=== PATIENT | female | born 1990 | race Caucasian/White ===

== ENCOUNTER 2016-03-31 19:34 | Emergency (ER) | payer OTHER ==
[2016-03-31] MEDS ORDERED: ONDANSETRON HCL INJ/PF 4 MG/2 ML SDV IV ONE (21:05)
[2016-03-31] MEDS ORDERED: NORMAL SALINE 1000 ML 1,000 ML IV PRN (21:05)
--- NOTE | 2016-03-31 21:09 | ER Document Report ---
ED Flu Like - General Chief Complaint: Flu Symptoms Stated Complaint: FLU LIKE SYMPTOMS Time seen by provider: 21:06 Mode of Arrival: Ambulatory Information source: Patient TRAVEL OUTSIDE OF THE [place] IN LAST 30 DAYS: No - HPI Patient complains to provider of: fever, body aches, vomiting and diarrhea, headache Onset: This morning Timing/Duration: Worse Quality of pain: Achy Severity: Moderate Pain Level: 3 Associated symptoms: Body/muscle aches, Chills, Nonproductive cough, Fever, Headache, Nausea, Vomiting, Shortness of breath, Sore throat, Weakness Similar symptoms previously: No Recently seen / treated by doctor: Yes Notes: Patient is a 26-year-old female who is approximately 27 weeks , who presents to the emergency room complaining of flulike symptoms that started this morning with vomiting, diarrhea, body aches, chills, headache, sore throat , nonproductive cough, positive sick contacts with son recently, 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, positive sick contacts - Related Data Allergies/Adverse Reactions: No Known Allergies Allergy (Verified 08/03/14 13:08) Past Medical History - General Information source: Patient - Social History Smoking Status: Never Smoker Chew tobacco use (# tins/day): No Frequency of alcohol use: None Drug Abuse: None Family History: Reviewed & Not Pertinent Patient has suicidal ideation: No Patient has homicidal ideation: No Renal/ Medical History: Denies: Hx Peritoneal Dialysis Past Surgical History: Reports: Hx Section - Immunizations Immunizations up to date: Yes Hx Diphtheria, Pertussis, Tetanus Vaccination: No Review of Systems - Review of Systems Constitutional: See HPI EENT: No symptoms reported Cardiovascular: No symptoms reported Respiratory: See HPI Gastrointestinal: See HPI Genitourinary: No symptoms reported Female Genitourinary: No symptoms reported Musculoskeletal: See HPI Skin: No symptoms reported Hematologic/Lymphatic: No symptoms reported Neurological/Psychological: See HPI -: Yes All other systems reviewed and negative Physical Exam - Vital signs Vitals: Temp Pulse Resp BP Pulse Ox 98.8 F 117 H 18 109/71 97 03/31/16 20:05 03/31/16 20:05 03/31/16 20:05 03/31/16 20:05 03/31/16 20:05 Interpretation: Tachycardic - General General appearance: Appears well, Alert - HEENT Head: Normocephalic, Atraumatic Eyes: Normal Conjunctiva: Normal Extraocular movements intact: Yes Eyelashes: Normal Pupils: PERRL Ears: Normal External canal: Normal Tympanic membrane: Normal Sinus: Normal Nasal: Normal Mouth/Lips: Normal Pharynx: Erythema. No: Exudate, Tonsillar hypertrophy Neck: Normal - Respiratory Respiratory status: No respiratory distress Chest status: Nontender Breath sounds: Normal Chest palpation: Normal - Cardiovascular Rhythm: Regular Heart sounds: Normal auscultation Murmur: No - Abdominal Inspection: Gravid female Distension: No distension Bowel sounds: Normal Tenderness: Nontender Organomegaly: No organomegaly - Back Back: Normal, Nontender - Extremities General upper extremity: Normal inspection, Nontender, Normal color, Normal ROM , Normal temperature General lower extremity: Normal inspection, Nontender, Normal color, Normal ROM , Normal temperature, Normal weight bearing. No: Marilin's sign - Neurological Neuro grossly intact: Yes Cognition: Normal Orientation: AAOx4 [place] Coma Scale Eye Opening: Spontaneous Jesús Coma Scale Verbal: Oriented Jesús Coma Scale Motor: Obeys Commands [place] Coma Scale Total: 15 Speech: Normal Motor strength normal: LUE, RUE, LLE, RLE Sensory: Normal - Psychological Associated symptoms: Normal affect, Normal mood - Skin Skin Temperature: Warm Skin Moisture: Dry Skin Color: Normal Course - Re-evaluation Re-evalutation: 03/31/16 23:01 Patient resting comfortably, reports nausea is improved, still having body aches , lab findings were discussed with her and fianc at bedside which are relatively normal, she was advised to rest, drink plenty of fluids, take Tylenol as needed for fever or body aches, follow up with her EQUIPMENT MAINT TECH or return if symptoms worsen, patient acknowledges understanding and agreement with this plan - Vital Signs Vital signs: Temp Pulse Resp BP Pulse Ox 98.9 F 117 H 18 109/71 97 03/31/16 22:54 03/31/16 20:05 03/31/16 20:05 03/31/16 20:05 03/31/16 20:05 - Laboratory Result Diagrams: 03/31/16 22:20 03/31/16 22:20 Laboratory results interpreted by me: 03/31/16 03/31/16 03/31/16 22:20 22:20 22:20 RBC 3.48 L Hgb 10.8 L Hct 32.0 L RDW 16.8 H Seg Neutrophils % 84.5 H Lymphocytes % 6.1 L Absolute Lymphocytes 0.3 L Sodium 135.0 L BUN 5 L Total Protein 6.1 L Albumin 3.4 L Urine Ketones 20 H Urine Ascorbic Acid 20 H Discharge - Discharge Clinical Impression: Viral illness Condition: Stable Disposition: HOME, SELF-CARE Instructions: Viral Syndrome ([facility]), Acetaminophen Additional Instructions: Drink plenty of fluids. Tylenol or Motrin as needed for fever. Follow-up with your EQUIPMENT MAINT TECH in one to 2 days. Return to the emergency room immediately if symptoms worsen or any additional concerns. Forms: Return to Work
[2016-03-31 22:34] LABS: ABSOLUTE LYMPHOCYTES (AUTO) 0.3 10^3/uL (0.5-4.7); ABSOLUTE MONOCYTES (AUTO) 0.4 10^3/uL (0.1-1.4); BASOPHILS % (AUTO) 0.4 % (0-2); EOSINOPHILS % (AUTO) 0.1 % (0-6); HEMOGLOBIN 10.8 g/dL (12.0-15.5); HGB HCT DIFFERENCE 0.4; LYMPHOCYTES % (AUTO) 6.1 % (13-45); MEAN CORPUSCULAR HEMOGLOBIN 30.9 pg (27.0-33.4); MEAN CORPUSCULAR HGB CONC 33.6 g/dL (32.0-36.0); MEAN CORPUSCULAR VOLUME 92 fl (80-97); MONOCYTES % (AUTO) 8.9 % (3-13); RED BLOOD COUNT 3.48 10^6/uL (3.72-5.28); RED CELL DISTRIBUTION WIDTH 16.8 % (11.5-14.0); SEGMENTED NEUTROPHILS % (AUTO) 84.5 % (42-78); WHITE BLOOD COUNT 4.8 10^3/uL (4.0-10.5)
[2016-03-31 22:51] LABS: ALANINE AMINOTRANSFERASE 24 U/L (9-52); ALBUMIN 3.4 g/dL (3.5-5.0); ALKALINE PHOSPHATASE 72 U/L (38-126); ANION GAP 7 (5-19); ASPARTATE AMINO TRANSFERASE 21 U/L (14-36); BILIRUBIN,TOTAL 0.3 mg/dL (0.2-1.3); BLOOD UREA NITROGEN 5 mg/dL (7-20); CALCIUM 8.5 mg/dL (8.4-10.2); CARBON DIOXIDE 25 mmol/L (22-30); CHLORIDE 103 mmol/L (98-107); CREATININE RESULT 0.55 mg/dL (0.52-1.25); GLUCOSE 91 mg/dL (75-110); POTASSIUM 3.8 mmol/L (3.6-5.0); TOTAL PROTEIN 6.1 g/dL (6.3-8.2)
[2016-03-31 22:52] LABS: APPEARANCE,URINE SLIGHTLY-CLOUDY; BILIRUBIN,URINE NEGATIVE (NEGATIVE); GLUCOSE, URINE NEGATIVE (NEGATIVE); KETONES,URINE 20 mg/dL (NEGATIVE); LEUKOCYTE ESTERASE,URINE NEGATIVE (NEGATIVE); NITRITE,URINE NEGATIVE (NEGATIVE); PROTEIN,URINE NEGATIVE (NEGATIVE); URINE SPECIFIC GRAVITY 1.023; UROBILINOGEN,URINE NEGATIVE mg/dL (<2.0)
[2016-03-31 23:11] VITALS: BP 109/64
== END 2016-03-31 23:11 | disposition home or self-care (01) ==
LOC: ER 19:34
DX: O98.519 Other viral diseases complicating pregnancy, unspecified trimester (principal); B34.9 Viral infection, unspecified; O21.9 Vomiting of pregnancy, unspecified; O26.899 Other specified pregnancy related conditions, unspecified trimester; R50.9 Fever, unspecified; R51 Headache; R05 Cough; R06.02 Shortness of breath; R53.1 Weakness; O99.89 Other specified diseases and conditions complicating pregnancy, childbirth and the puerperium; M79.1 Myalgia; O99.519 Diseases of the respiratory system complicating pregnancy, unspecified trimester; J02.9 Acute pharyngitis, unspecified; Z3A.00 Weeks of gestation of pregnancy not specified
CPT/HCPCS: 99283; 96361; 96374; 36415; 87070; 87880; 85025; 80053; 81001; 87804; J2405; J7030

== ENCOUNTER 2016-04-18 10:06 | Observation (INO) | payer OTHER ==
[2016-04-18] MEDS ORDERED: NIFEDIPINE 10 MG CAPSULE ONE ×2 (11:25→16:35)
[2016-04-18 11:27] LABS: APPEARANCE,URINE CLEAR; BILIRUBIN,URINE NEGATIVE (NEGATIVE); GLUCOSE, URINE NEGATIVE (NEGATIVE); KETONES,URINE NEGATIVE (NEGATIVE); LEUKOCYTE ESTERASE,URINE NEGATIVE (NEGATIVE); NITRITE,URINE NEGATIVE (NEGATIVE); PROTEIN,URINE NEGATIVE (NEGATIVE); URINE SPECIFIC GRAVITY 1.017; UROBILINOGEN,URINE NEGATIVE mg/dL (<2.0)
[2016-04-18 11:41] LABS: URINE BARBITURATES SCREEN NEGATIVE; URINE METHADONE SCREEN NEGATIVE; URINE OPIATES LOW NEGATIVE; URINE PHENCYCLIDINE SCREEN NEGATIVE
[2016-04-18] MEDS ORDERED: NIFEDIPINE 10 MG CAPSULE PO ONE ×2 (11:48→16:34)
--- NOTE | 2016-04-18 12:01 | L&D Flow Sheet ---
LD Flowsheet Datetime Report Generated by CPN: 04/18/2016 12:00 Datetime: 04/18/2016 11:38 Communication Comments: PT EATING PER DR HOFFEMAN ORDER (Tanvi Halsmer, RN) Datetime: 04/18/2016 11:30 Medications Medication Comments: PROCARDIA 10MG PO PER DR HOFFEMAN (Tanvi Halsmer, RN) Datetime: 04/18/2016 11:27 NBP Sys/Tuyet/Mean (mmHg): 98 (QS system process) : 55 (QS system process) : 73 (QS system process) Pulse: 73 (QS system process) Respirations: 16 (Tanvi Halsmer, RN) LaborFlag: Antepartum (QS system process) Datetime: 04/18/2016 11:25 Patient Care Patient Position/Activity: Left Lateral (Tanvi Halsmer, RN) I/O Interventions: Popsicle (Tanvi Halsmer, RN) Datetime: 04/18/2016 11:06 Communication Comments: FFN COLLECTED PER RN (Tanvi Halsmer, RN) Datetime: 04/18/2016 10:57 NBP Sys/Tuyet/Mean (mmHg): 119 (QS system process) : 73 (QS system process) : 91 (QS system process) Pulse: 66 (QS system process) Respirations: 16 (Tanvi Halsmer, RN) LaborFlag: Antepartum (QS system process) Datetime: 04/18/2016 10:55 Communication Communication: Provider at Bedside (Tanvi Matson RN) Communication Comments: DR FOSS AT BEDSIDE DISCUSSING POC AT THIS TIME. (Tanvi Matson RN) Datetime: 04/18/2016 10:27 NBP Sys/Tuyet/Mean (mmHg): 117 (QS system process) : 73 (QS system process) : 87 (QS system process) Pulse: 63 (QS system process) Respirations: 16 (Tanvi Matson RN) Temperature (F): 97.8 (Tanvi Matson RN) Temperature (C): 36.6 (QS system process) Temperature Route: Oral (Tanvi Matson, RN) Pain Pain Scale: 1 (Tanvi Crandaller, RN) Pain Presence: Intermittent (Tanvi Crandaller, RN) Pain Type: Cramping; Pressure (Tanvi Crandaller, RN) Pain Location: Abdomen; Perineum (Tanvi Crandaller, RN) Pain Goal: 0 (Tanvi Zaratesmer, RN) Pain Relief Measures: Comfort Measures (Tanvi Crandaller, RN) LaborFlag: Antepartum (QS system process) Datetime: 04/18/2016 10:15 Vital Signs Stage of : Antepartum (Tanvi Matson RN)
[2016-04-18] MEDS ORDERED: BETAMET ACET/BETAMET NA INJ 6 MG/1 ML ONE (12:44)
[2016-04-18 13:18] LABS: AMNISURE (ROM) NEGATIVE (NEGATIVE)
[2016-04-18] MEDS ORDERED: IBUPROFEN 800 MG TABLET ONE (13:43)
[2016-04-18] MEDS ORDERED: IBUPROFEN 800 MG TABLET PO SCH (13:49)
--- NOTE | 2016-04-18 14:01 | L&D Flow Sheet ---
LD Flowsheet Datetime Report Generated by CPN: 04/18/2016 14:00 Datetime: 04/18/2016 13:49 Medication Comments: MOTRIN 800 MG PO (Tanvi Halsmer, RN) Datetime: 04/18/2016 13:19 Communication Comments: negative amnisure results. Dr. Webster discussing poc with pt and family. pt is being kept for 48 hour observation, motrin 800mg po q8, no IV needed, pt may eat and drink. (Tanvi Halsmer, RN) Datetime: 04/18/2016 12:53 Steroids: Celestone 12mg IM - Dose 1 (Tanvi Halsmer, RN) Datetime: 04/18/2016 12:49 Communication Comments: AMNISURE COLLECTED PER DR HOFFEMAN (Tanvi Halsmer, RN) Datetime: 04/18/2016 12:22 NBP Sys/Tuyet/Mean (mmHg): 114 (QS system process) : 67 (QS system process) : 85 (QS system process) Pulse: 87 (QS system process) LaborFlag: Antepartum (QS system process)
[2016-04-18 15:34] LABS: ABSOLUTE LYMPHOCYTES (AUTO) 0.9 10^3/uL (0.5-4.7); ABSOLUTE MONOCYTES (AUTO) 0.2 10^3/uL (0.1-1.4); BASOPHILS % (AUTO) 0.3 % (0-2); EOSINOPHILS % (AUTO) 0.1 % (0-6); HEMATOCRIT 35.4 % (36.0-47.0); HEMOGLOBIN 11.8 g/dL (12.0-15.5); LYMPHOCYTES % (AUTO) 8.5 % (13-45); MEAN CORPUSCULAR HEMOGLOBIN 30.6 pg (27.0-33.4); MEAN CORPUSCULAR HGB CONC 33.2 g/dL (32.0-36.0); MEAN CORPUSCULAR VOLUME 92 fl (80-97); MONOCYTES % (AUTO) 2.4 % (3-13); RED BLOOD COUNT 3.85 10^6/uL (3.72-5.28); RED CELL DISTRIBUTION WIDTH 16.5 % (11.5-14.0); SEGMENTED NEUTROPHILS % (AUTO) 88.7 % (42-78); WHITE BLOOD COUNT 10.2 10^3/uL (4.0-10.5)
--- NOTE | 2016-04-18 16:01 | L&D Flow Sheet ---
LD Flowsheet Datetime Report Generated by CPN: 04/18/2016 16:00 Datetime: 04/18/2016 15:28 Pain Scale: 1 (Melida Camp, RNC) Pain Coping: Talking Through Contractions (Melida Camp, RNC) Pain Assessment Comments: watching dvd no complaints (Melida Camp, RNC) LaborFlag: Antepartum (QS system process) Datetime: 04/18/2016 15:00 Monitor Mode: External; Palpation (Melida Camp, RNC) Monitor Interventions for UA: [place] Adjusted (Melida Camp, RNC) Frequency (min): 1-3 (Melida Camp, RNC) Quality: Mild (Melida Camp, RNC) Duration (sec): 30-50 (Melida Camp, RNC) Duration Criteria: Less than Two 120 Second Contractions (Melida Camp, RNC) Pattern: Normal: <= 5 Contractions in 10 Minutes (Melida Camp, RNC) Resting Tone (Palpate): Relaxed (Melida Camp, RNC) Contraction Comments: irregular/ irritable pattern (Melida Camp, RNC) Datetime: 04/18/2016 14:57 NBP Sys/Tuyet/Mean (mmHg): 95 (QS system process) : 53 (QS system process) : 69 (QS system process) Pulse: 65 (QS system process) Temperature (F): 97.6 (Melida Camp, RNC) Temperature (C): 36.4 (QS system process) Temperature Route: Oral (Melida Camp, RNC) LaborFlag: Antepartum (QS system process) Datetime: 04/18/2016 14:30 Monitor Mode: External; Palpation (Melida Camp, RNC) Frequency (min): 1-3 (Melida Camp, RNC) Quality: Mild (Melida Camp, RNC) Duration (sec): 40-50 (Melida Camp, RNC) Resting Tone (Palpate): Relaxed (Melida Camp, RNC) Level of Consciousness: Fully Conscious (Melida Camp, RNC) DTR's/Clonus: DTRs 1+ (Melida Camp, RNC) Headache: Denies (Melida Camp, RNC) Breath Sounds, Left: Clear and Equal (Melida Camp, RNC) Breath Sounds, Right: Clear and Equal (Melida Camp, RNC) Nausea/Vomiting: Denies (Melida Camp, RNC) RUQ Epigastric Pain: Denies (Melida Camp, RNC) Datetime: 04/18/2016 14:06 Communication Comments: REPORT GIVEN TO S. EVANSTON, RNC AND CARE RELINQUISHED AT THIS TIME. (Tanvi Matson RN) Datetime: 04/18/2016 14:00 Monitor Mode: External (Tanvi Crandaller, RN) Frequency (min): IRRITABLITY NOTED (Tanvi Matson RN) Quality: Mild (Tanvi Matson RN) Resting Tone (Palpate): Relaxed (Tanvi Matson RN) Monitor Mode: External US (Tanvi Matson RN) FHR Baseline Rate : 140 (Tanvi Matson RN) FHR Baseline Changes: No Baseline Change (Tanvi Matson RN) Variability: Moderate 6-25 bpm (Tanvi Matson RN) Accelerations: 15X15 (Tanvi Matson RN) Decelerations: None (Tanvi Matson RN)
[2016-04-18] MEDS ORDERED: DEXTROSE 5%-LACTATED RINGERS 1,000 ML IV PRN (17:11)
--- NOTE | 2016-04-18 18:01 | L&D Flow Sheet ---
LD Flowsheet Datetime Report Generated by CPN: 04/18/2016 18:00 Datetime: 04/18/2016 17:39 IV/Blood Work: IV Bolus Given ml @ 1000ml of d5lr; New IV Bag Hung (Melida Camp, RNC) Patient Care Comments: sitting to eat (Melida Camp, RNC) Patient Care Comments: D5LR up @ 100 ml/hr (Melida Camp, RNC) Datetime: 04/18/2016 17:30 Pain Scale: 0 (Melida Camp, RNC) Pain Coping: Talking Through Contractions (Melida Camp, RNC) Pain Assessment Comments: states reduction in cramping with Procardia and iv fluids (Melida Camp, RNC) LaborFlag: Antepartum (QS system process) Datetime: 04/18/2016 17:05 NBP Sys/Tuyet/Mean (mmHg): 116 (QS system process) : 66 (QS system process) : 83 (QS system process) Pulse: 94 (QS system process) Respirations: 16 (Melida Camp, RNC) LaborFlag: Antepartum (QS system process) Datetime: 04/18/2016 17:00 Monitor Mode: External; Palpation (Melida Camp, RNC) Frequency (min): 1-2 (Melida Camp, RNC) Quality: Mild (Melida Camp, RNC) Duration (sec): 40-60 (Melida Camp, RNC) Duration Criteria: Less than Two 120 Second Contractions (Melida Camp, RNC) Resting Tone (Palpate): Relaxed (Melida Camp, RNC) IV/Blood Work: IV Started; IV Bolus Started; IV Infusing per Order (Melida Camp, RNC) Datetime: 04/18/2016 16:43 Magnesium/Antihypertensives: Procardia PO (mg) @ 10mg po given (Melida Camp, RNC) Datetime: 04/18/2016 16:40 Communication: Provider Orders Received; [facility] Communication Comments: Dr Webster given phone report of contractions every 1-2 minutes , palpate mild with relaxation noted. Report that patient states she is aware of contractions with c/o intermittent menstrual like cramping. Plan discussed for IV placement with bolus D5LR and po Procaria 10 mg (Melida Camp, RNC) Datetime: 04/18/2016 16:37 NBP Sys/Tuyet/Mean (mmHg): 96 (QS system process) : 52 (QS system process) : 70 (QS system process) Pulse: 67 (QS system process) Respirations: 17 (Melida Camp, RNC) LaborFlag: Antepartum (QS system process) Datetime: 04/18/2016 16:00 Monitor Mode: External; Palpation (Melida Camp, RNC) Frequency (min): irregular (Melida Camp, RNC) Quality: Mild (Melida Camp, RNC) Duration (sec): 30-50 (Melida Camp, RNC) Duration Criteria: Less than Two 120 Second Contractions (Melida Camp, RNC) Pattern: Normal: <= 5 Contractions in 10 Minutes (Melida Camp, RNC) Resting Tone (Palpate): Relaxed (Melida Camp, RNC) Contraction Comments: irritability noted (Melida Camp, RNC)
--- NOTE | 2016-04-18 20:01 | L&D Flow Sheet ---
LD Flowsheet Datetime Report Generated by CPN: 04/18/2016 20:00 Datetime: 04/18/2016 19:49 NBP Sys/Tuyet/Mean (mmHg): 112 (QS system process) : 63 (QS system process) : 81 (QS system process) Pulse: 76 (QS system process) LaborFlag: Antepartum (QS system process) Datetime: 04/18/2016 19:30 Level of Consciousness: Fully Conscious (Veronique Ring, RN) DTR's/Clonus: DTRs 2+; No Clonus (Veronique Ring, RN) Headache: Denies (Veronique Ring, RN) Breath Sounds, Left: Clear and Equal (Veronique Ring, RN) Breath Sounds, Right: Clear and Equal (Veronique Ring, RN) Nausea/Vomiting: Denies (Veronique Ring, RN) RUQ Epigastric Pain: Denies (Veronique Ring, RN) Datetime: 04/18/2016 19:00 Monitor Mode: External; Palpation (Melida Camp, RNC) Frequency (min): irritability (Melida Camp, RNC) Quality: Mild (Melida Camp, RNC) Duration (sec): 30-45 (Melida Camp, RNC) Pattern: Normal: <= 5 Contractions in 10 Minutes (Melida Camp, RNC) Resting Tone (Palpate): Relaxed (Melida Camp, RNC) Pain Scale: 1 (Melida Camp, RNC) Pain Presence: None/Denies (Melida Camp, RNC) Pain Type: N/A (Melida Camp, RNC) Pain Coping: Talking Through Contractions (Melida Camp, RNC) Pain Assessment Comments: denies increase in intensity (Melida Camp, RNC) Communication: RN at Bedside (Melida Camp, RNC) LaborFlag: Antepartum (QS system process) Datetime: 04/18/2016 18:48 Patient Care Comments: sitting up and holding son, RN to bedside toco adjusted (Melida Camp, RNC) Datetime: 04/18/2016 18:30 Monitor Mode: External; Palpation (Melida Camp, RNC) Monitor Interventions for UA: [place] Adjusted (Melida Camp, RNC) Frequency (min): irregular (Melida Camp, RNC) Quality: Mild (Melida Camp, RNC) Duration (sec): 40-60 (Melida Camp, RNC) Duration Criteria: Less than Two 120 Second Contractions (Melida Camp, RNC) Pattern: Normal: <= 5 Contractions in 10 Minutes (Melida Camp, RNC) Resting Tone (Palpate): Relaxed (Melida Camp, RNC) Contraction Comments: states decrease in cramping (Melida Camp, RNC) Datetime: 04/18/2016 18:00 Communication: RN at Bedside (Melida Camp, RNC)
[2016-04-19] MEDS ORDERED: BETAMET ACET/BETAMET NA INJ 6 MG/1 ML IM PRN (09:29)
--- NOTE | 2016-04-19 09:29 | PDOC PROGRESS REPORT ---
Subjective Progress Note for:: 04/19/16 Subjective:: doing well. occasional contraction only. no regular pattern. no bleeding, no LOF No further SOB. Physical Exam - Physical Exam Vital Signs: Temp Pulse Resp BP Pulse Ox 97.8 F 64 16 112/57 L 99 04/19/16 08:00 04/19/16 08:00 04/19/16 08:00 04/19/16 08:00 04/19/16 08:00 Intake & Output 04/18/16 04/19/16 04/20/16 06:59 06:59 06:59 Intake Total 300 Output Total 900 Balance -600 Weight 60.3 kg General appearance: PRESENT: no acute distress, cooperative GI/Abdominal exam: PRESENT: soft - non tender, gravid Result Laboratory Results: 04/18/16 15:15 04/18/16 04/18/16 10:32 15:15 WBC 10.2 RBC 3.85 Hgb 11.8 L Hct 35.4 L MCV 92 MCH 30.6 MCHC 33.2 RDW 16.5 H Plt Count 272 Seg Neutrophils % 88.7 H Lymphocytes % 8.5 L Monocytes % 2.4 L Eosinophils % 0.1 Basophils % 0.3 Absolute Neutrophils 9.0 H Absolute Lymphocytes 0.9 Absolute Monocytes 0.2 Absolute Eosinophils 0.0 Absolute Basophils 0.0 Urine Color YELLOW Urine Appearance CLEAR Urine pH 7.0 Ur Specific [place] 1.017 Urine Protein NEGATIVE Urine Glucose (UA) NEGATIVE Urine Ketones NEGATIVE Urine Blood NEGATIVE Urine Nitrite NEGATIVE Ur Leukocyte Esterase NEGATIVE Urine WBC (Auto) 1 Impressions: Obstetrics Ultrasound 04/18/16 00:00 IMPRESSION: LIMITED OBSTETRICAL ULTRASOUND WITH MEASURED PARAMETERS DELINEATED ABOVE. Trimester of : Third trimester - 28 weeks to delivery. Assessment & Plan - Time Time Spent with patient: Less than 15 minutes Critical Time spent with patient: Less than 15 minutes Medications reviewed and adjusted accordingly: Yes - 2nd Celestone injection today at 1244 Anticipated discharge: Home Within: within 24 hours - Inpatient Certification Based on my medical assessment, after consideration of the patient's comorbidities, presenting symptoms, or acuity I expect that the services needed warrant INPATIENT care.: Yes I certify that my determination is in accordance with my understanding of Medicare's requirements for reasonable and necessary INPATIENT services [42 CFR 412.3e].: Yes Medical Necessity: Need Close Monitoring Due to Risk of Patient Decompensation - plan for d/c in AM if remains stable with few/none contractions
[2016-04-19] MEDS: IBUPROFEN 800 MG TABLET PO SCH ×2 (10:40→19:54)
[2016-04-20] MEDS: IBUPROFEN 800 MG TABLET PO SCH (02:22)
--- NOTE | 2016-04-20 08:18 | PDOC DISCHARGE SUMMARY ---
General - Admit/Disc Date/PCP Admission Date/Primary Care Provider: 04/18/16 14:03 BARBIE DELANEY MD Discharge Date: 04/20/16 - Additional Information Home Medications: Vit#96/Ferrous Fum/FA [ Tablet] 1 tab PO DAILY 08/03/14 Ibuprofen [Motrin 800 mg Tablet] 800 mg PO Q6 #60 tablet 08/04/14 History of Present Illness History of Present Illness: RODRIGO FUENTES is a 26 year old female Hospital Course Hospital Course: has responded well to tocolysis with Motrin. No bleeding. SOB has resolved. Physical Exam - Physical Exam Vital Signs: Temp Pulse Resp BP Pulse Ox 98.1 F 69 16 108/59 L 100 04/20/16 04:00 04/20/16 04:00 04/20/16 04:00 04/20/16 04:00 04/20/16 04:00 Intake & Output 04/19/16 04/20/16 04/21/16 06:59 06:59 06:59 Intake Total 300 340 Output Total 900 Balance -600 340 Weight 60.3 kg General appearance: PRESENT: no acute distress GI/Abdominal exam: PRESENT: soft, other - gravid, nontender - Obstetrical Exam Tender: No Result Laboratory Results: 04/18/16 15:15 Impressions: Obstetrics Ultrasound 04/18/16 00:00 IMPRESSION: LIMITED OBSTETRICAL ULTRASOUND WITH MEASURED PARAMETERS DELINEATED ABOVE. Trimester of : Third trimester - 28 weeks to delivery. Plan Time Spent: Less than 30 Minutes - discharge home with another 24 hours of Motrin and then start Procardia 10 mg q 4-12 hours prn contraction pattern
[2016-04-20 09:08] VITALS: BP 99/59
--- NOTE | 2016-04-20 10:45 | L&D Discharge Summary ---
OB Discharge Summary Datetime Report Generated by CPN: 04/20/2016 10:45 DISCHARGE DIAGNOSIS Gestation: 30.1 Number of Babies in Womb: 4 Parity: 1
--- NOTE | 2016-04-20 10:45 | L&D General Admission ---
General Admit Datetime Report Generated by CPN: 04/20/2016 10:45 INFORMATION Patient Age: 26 (04/18/2016 10:06:QS system process) EDC: 06/27/2016 00:00 (04/18/2016 10:45:Tanvi Matson RN) EDC per Ultrasound: 06/27/2016 00:00 (04/18/2016 10:45:Tanvi Matson RN) LMP: 09/21/2015 00:00 (04/18/2016 10:45:Tanvi Matson RN) : 4 (04/18/2016 10:45:Tanvi Matson RN) Para: 1 (04/18/2016 10:45:Tanvi Matson RN) Term: 1 (04/18/2016 10:45:Tanvi Matson RN) : 0 (04/18/2016 10:45:Tanvi Matson RN) Spontaneous Abortions: 2 (04/18/2016 10:45:Tanvi Matson RN) Induced Abortions: 0 (04/18/2016 10:45:Tanvi Matson RN) Livin (04/18/2016 10:45:Tanvi Matson RN) Cesareans: 1 (04/18/2016 10:45:Tanvi Matson RN) VBACs: 0 (04/18/2016 10:45:Tanvi Matson RN) Ectopic: 0 (04/18/2016 10:45:Tanvi Matson RN) Multiple Births: 0 (04/18/2016 10:45:Tanvi Matson RN) Baby, Number in Womb: 4 (04/18/2016 10:45:Tanvi Matson RN) CARE Primary Fire Support Specialist: [facility] (04/18/2016 10:45:Tanvi Matson RN) Month of 1st Visit: 12/03/2015 (04/18/2016 10:45:Tanvi Matson RN) Adequate Care: Yes (04/18/2016 10:45:Tanvi Matson RN) Prepregnancy Weight (lb): 124 (04/18/2016 10:45:Tavni Matson RN) Prepregnancy Weight (kg): 56.4 (04/18/2016 10:45:QS system process) Height (in): 61 (04/18/2016 21:38:QS system process) Height (in): 61 (04/18/2016 16:02:QS system process) Height (in): 61 (04/18/2016 14:58:QS system process) Height (in): 61 (04/18/2016 14:30:QS system process) Height (in): 61 (04/18/2016 14:29:QS system process) Height (in): 61 (04/18/2016 14:28:QS system process) Height (in): 61 (04/18/2016 10:52:QS system process) ALLERGIES Medication Allergy: No (04/18/2016 10:45:Tanvi Matson RN) Medication Allergies: No Known Allergies (04/18/2016) (04/18/2016 10:47:QS system process) Medication Allergies: No Known Allergies (08/03/2014) (04/18/2016 10:06:QS system process) Latex Allergy: No Latex Allergies (04/18/2016 10:45:Tanvi Matson RN) Food Allergies: NONE (04/18/2016 10:45:Tanvi Matson RN) Environmental Allergies: NONE (04/18/2016 10:45:Tanvi Matson RN) COMMUNICATION Primary Language: Tamazight (04/18/2016 10:45:Tanvi Matson RN) Medical Tx Preferred Language: Tamazight (04/18/2016 10:45:Tanvi Halsmer, RN) Communication Barrier(s): None (04/18/2016 10:45:Tanvi Matson RN) DEMOGRAPHICS Address: [address] [place] [id number] (04/18/2016 10:06:QS system process) Zipcode: [id number] (04/18/2016 10:06:QS system process) Home (04/18/2016 10:06:QS system process) Work (04/18/2016 10:06:QS system process) SSN: [id number] (04/18/2016 10:06:QS system process) Next of Kin Name: OSEI MAHAN (04/18/2016 10:06:QS system process) Next of Kin (04/18/2016 10:06:QS system process) Next of Kin Relationship: OR (04/18/2016 10:06:QS system process) Date of : 1990 (04/18/2016 10:06:QS system process) Marital Status: Legally (04/18/2016 10:06:QS system process) Sex: Female (04/18/2016 10:06:QS system process) Race: (04/18/2016 10:06:QS system process) Ethnicity: Non- or (04/18/2016 10:06:QS system process) Synagogue: None (04/18/2016 10:06:QS system process) DRUG AND ALCOHOL USE Alcohol: No (04/18/2016 10:45:Tanvi Matson RN) Cigarettes: Never Smoker. [id number] (04/18/2016 10:45:Tanvi Matson RN) Marijuana: No (04/18/2016 10:45:Tanvi Matson RN) Cocaine: No (04/18/2016 10:45:Tanvi Matson RN) Other Illicit Drugs: No (04/18/2016 10:45:Tanvi Matson RN) VACCINE HISTORY Influenza Vaccine: Yes (04/18/2016 10:45:Katrina Dickinson RN) Influenza Date: 10/2015 (04/18/2016 10:45:Katrina Dickinson RN) Pneumococcal Vaccine: No (04/18/2016 10:45:Katrina Dickinson RN) Tetanus Vaccine: Yes (04/18/2016 10:45:Katrina Dickinson RN) Tetanus Date: 03/2014 (04/18/2016 10:45:VIKI Gillette) Tdap Vaccine: Yes (04/18/2016 10:45:Katrina Dickinson RN) Tdap Date: 03/2014 (04/18/2016 10:45:Katrina Dickinson RN) Hepatitis B Vaccine: Yes (04/18/2016 10:45:Katrina Dickinson RN) Lunch Cook: [facility] (04/18/2016 10:45:Katrina Dickinson RN) Feeding Preference: Breast (04/18/2016 10:45:Katrina Dickinson RN) Benefit of Breast Feed Discussed: Yes (04/18/2016 10:45:Katrina Dickinson RN) Circumcision: N/A (04/18/2016 10:45:Katrina Dickinson RN) Classes Attended: No (04/18/2016 10:45:Katrina Dickinson RN) Tubal Ligation: No (04/18/2016 10:45:Katrina Dickinson RN) Tubal Authorization Signed: N/A (04/18/2016 10:45:Katrina Dickinson RN) Consent: N/A (04/18/2016 10:45:Katrina Dickinson RN) Consent Signed: N/A (04/18/2016 10:45:Katrina Dickinson RN) Pain Management Plans: Spinal (04/18/2016 10:45:Katrina Dickinson RN) Other Pain Management Plans: REPEAT C/S (04/18/2016 10:45:Katrina Dickinson RN) Plans for Labor and Delivery: Cord Blood Banking; Other, Specify (04/18/2016 10:45:Veronique Streeter RN) Other Labor and Delivery Plans: - Skin to skin if possible in OR; delayed bath (04/18/2016 10:45:Veronique Streeter RN) Support Person: OSEI QURESHI (04/18/2016 10:45:Tanvi Matson RN) Support Person Relationship: Significant Other (04/18/2016 10:45:Tanvi Matson RN) Cultural/Spritual Practice: No (04/18/2016 10:45:Tanvi Matson RN) Spir/Cult Dietary Needs: No (04/18/2016 10:45:Tanvi Matson RN) LIVING SITUATION/DISCHARGE PLAN Living Arrangements: House (04/18/2016 10:45:Tanvi Matson RN) Adequate Access to:: Electric; Heat; Refrigeration; Plumbing/Running water; Phone; Transportation (04/18/2016 10:45:Tanvi Matson RN) WIC Program: No (04/18/2016 10:45:Tanvi Matson RN) Discharge Instrument Installer Person: OSEI MAHAN (04/18/2016 10:45:VIKI Gillette) Person to Help after Discharge: OSEI MAHAN (04/18/2016 10:45:VIKI Gillette) Currently Using Commun Resources: No (04/18/2016 10:45:Tanvi Matson RN) Outside Agency/Psych Social Worker: No (04/18/2016 10:45:Tanvi Matson RN) Car Seat for Discharge: Yes (04/18/2016 10:45:Tanvi Matson RN) Adoption Requested: No (04/18/2016 10:45:Tanvi Matson RN) Pt Contact w/infant Post : N/A (04/18/2016 10:45:Tanvi Matson RN) LABS Hemoglobin: 11.8 L (04/18/2016 15:15:QS system process) Hematocrit: 35.4 L (04/18/2016 15:15:QS system process) MCV: 92 (04/18/2016 15:15:QS system process) OB/PREVIOUS HISTORY LMP: 09/21/2015 00:00 (04/18/2016 10:45:Tanvi Matson RN) Previous Procedures: Ultrasound; NST (04/18/2016 10:45:Veronique Streeter RN) Current Procedures: Ultrasound; NST (04/18/2016 10:45:VIKI Gillette) History of Previous : Yes (04/18/2016 10:45:Katrina Dickinson RN) History of Gestational Diabetes: No (04/18/2016 10:45:Katrina Dickinson RN) History of PIH: No (04/18/2016 10:45:Katrina Dickinson RN) History of Incompetent Cervix: No (04/18/2016 10:45:Katrina Dickinson RN) History of Placenta Previa/Abrup: No (04/18/2016 10:45:Katrina Dicknison RN) History of Macrosomia: No (04/18/2016 10:45:Katrina Dickinson RN) History of IUGR: Yes (04/18/2016 10:45:Katrina Dickinson RN) History of Hemorrhage: No (04/18/2016 10:45:Katrina Dickinson RN) History of Loss/Stillborn: No (04/18/2016 10:45:Katrina Dickinson RN) History of : No (04/18/2016 10:45:Katrina Dickinson RN) History of D (Rh) Sensitization: No (04/18/2016 10:45:Katrina Dickinson RN) History Recurrent Loss/Stillborn: No (04/18/2016 10:45:Katrina Dickinson RN) History Depression/PP Depression: Yes (04/18/2016 10:45:Katrina Dickinson RN) History of Uterine Anomaly/ELSY: No (04/18/2016 10:45:Katrina Dickinson RN) History of Infertility: No (04/18/2016 10:45:Katrina Dickinson RN) History of ART Treatment: No (04/18/2016 10:45:Katrina Dickinson RN) History of ELSY: No (04/18/2016 10:45:Katrina Dickinson RN) Comments Obstetrical History: IUGR 1ST PREG WITH C/S-CPD G2- Polyhydramnious, contractions (04/18/2016 10:45:VIKI Gillette) MEDICAL HISTORY Med Hx Diabetes: No (04/18/2016 10:45:Katrina Dickinson RN) Med Hx Hypertension: No (04/18/2016 10:45:Katrina Dickinson RN) Med Hx Heart Disease: No (04/18/2016 10:45:Katrina Dickinson RN) Med Hx Autoimmune Disorder: No (04/18/2016 10:45:Katrina Dickinson RN) Med Hx Kidney Disease/UTI: Yes (04/18/2016 10:45:Katrina Dickinson RN) Med Hx Neurologic/Epilepsy: No (04/18/2016 10:45:Katrina Dickinson RN) Med Hx Psychiatric Disorders: No (04/18/2016 10:45:Katrina Dickinson RN) Med Hx Hepatitis/Liver Disease: No (04/18/2016 10:45:Katrina Dickinson RN) Med Hx Varicosities/Phlebitis: No (04/18/2016 10:45:Katrina Dickinson RN) Med Hx Thyroid Dysfunction: No (04/18/2016 10:45:Katrina Dickinson RN) Med Hx Trauma/Violence: No (04/18/2016 10:45:Katrina Dickinson RN) Med Hx Blood Transfusion: No (04/18/2016 10:45:Katrina Dickinson RN) Med Hx Pulmonary (Asthma,TB): No (04/18/2016 10:45:Katrina Dickinson RN) Med Hx Breast: No (04/18/2016 10:45:Katrina Dickinson RN) 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 (04/18/2016 10:45:Katrina Dickinson RN) Med Hx Hospitalization/Surgery: Yes (04/18/2016 10:45:Katrina Dickinson RN) Med Hx Anesthetic Complications: No (04/18/2016 10:45:Katrina Dickinson RN) Med Hx Abnormal Pap Smear: No (04/18/2016 10:45:Katrina Dickinson RN) Other Medical Diseases: Yes (04/18/2016 10:45:Katrina Dickinson RN) Med Hx Significant Family Hx: No (04/18/2016 10:45:Katrina Dickinson RN) Details of Med/Surg Hx: FRQ UTI'S DEPRESSION, ANXIETY CHILDBIRTH WITH C/S INTERSTICIAL CYSTITIS (04/18/2016 10:45:Katrina Dickinson RN) INFECTIOUS HISTORY Inf Hx Gonorrhea: No (04/18/2016 10:45:Katrina Dickinson RN) Inf Hx Chlamydia: No (04/18/2016 10:45:Katrina Dickinson RN) Inf Hx Syphilis: No (04/18/2016 10:45:Katrina Dickinson RN) Inf Hx HIV/AIDS: No (04/18/2016 10:45:Katrina Dickinson RN) Inf Hx Human Papilloma Virus: No (04/18/2016 10:45:Katrina Dickinson RN) Inf Hx Pt/Partner Genital Herpes: No (04/18/2016 10:45:Katrina Dickinson RN) Inf Hx Tuberculosis/Exposure: No (04/18/2016 10:45:Katrina Dickinson RN) Inf Hx Hepatitis B,C: No (04/18/2016 10:45:Katrina Dickinson RN) Inf Hx Rash or Viral Illness: No (04/18/2016 10:45:Katrina Dickinson RN) GENETIC HISTORY Gen Hx Age >=35 at LELA: No (04/18/2016 10:45:Katrina Dickinson RN) Gen Hx Thalassemia: No (04/18/2016 10:45:Katrina Dickinson RN) Gen Hx Congenital Heart Defect: No (04/18/2016 10:45:Katrina Dickinson RN) Gen Hx Neural Tube Defect: No (04/18/2016 10:45:Katrina Dickinson RN) Gen Hx Down's Syndrome: No (04/18/2016 10:45:Katrina Dickinson RN) Gen Hx Isidoro-Sachs: No (04/18/2016 10:45:Katrina Dickinson RN) Gen Hx Sebas: No (04/18/2016 10:45:Katrina Dickinson RN) Gen Hx Familial Dysautonomia: No (04/18/2016 10:45:Katrina Dickinson RN) Gen Hx Sickle Cell Disease/Trait: No (04/18/2016 10:45:Katrina Dickinson RN) Gen Hx Hemophilia/Blood Disorder: No (04/18/2016 10:45:Katrina Dickinson RN) Gen Hx Muscular Dystrophy: No (04/18/2016 10:45:Katrina Dickinson RN) Gen Hx Cystic Fibrosis: No (04/18/2016 10:45:Katrina Dickinson RN) Gen Hx [place] Chorea: No (04/18/2016 10:45:Katrina Dickinson RN) Gen Hx Mental Retardation/Autism: No (04/18/2016 10:45:Katrina Dickinson RN) Gen Hx Tested for Fragile X: No (04/18/2016 10:45:Katrina Dickinson RN) Gen Hx Other Inher/Chromosomal: No (04/18/2016 10:45:Katrina Dickinson RN) Gen Hx Maternal Metabolic DO: No (04/18/2016 10:45:Katrina Dickinson RN) Gen Hx Pt Father or FOB Defect: No (04/18/2016 10:45:Katrina Dickinson RN) Gen Hx Other Genetic History: No (04/18/2016 10:45:Katrina Dickinson RN) Gen Hx Drugs/Meds since LMP: Yes (04/18/2016 10:45:Veronique Streeter RN) Gen Hx Medications: PNV, iron, vitamin c, diclegis, zofran (04/18/2016 10:45:Veronique Streeter RN)
--- NOTE | 2016-04-20 10:45 | L&D Current Admission ---
Current Admit Datetime Report Generated by CPN: 04/20/2016 10:45 ADMISSION INFORMATION Current Admit Date/Time: 04/18/2016 13:00 (04/18/2016 10:52:Katrina Dickinson RN) Reason for Admission: Labor; Observation (04/18/2016 10:52:Katrina Dickinson RN) Chief Complaint: Contractions (04/18/2016 10:52:Tanvi Matson RN) Medications During : Vitamin (04/18/2016 10:52:Katrina Dickinson RN) Meds During -Oth: FESO4 (04/18/2016 10:52:Katrina Dickinson RN) EGA per Dates: 30.0 (04/18/2016 10:52:QS system process) EGA per US: 30.0 (04/18/2016 10:52:QS system process) Method of Arrival: Wheelchair (04/18/2016 10:52:Katrina Dickinson RN) Admitted From: Home (04/18/2016 10:52:Katrina Dickinson RN) Reason for Induction: Not Applicable (04/18/2016 10:52:Katrina Dickinson RN) Records Available: Yes (04/18/2016 10:52:Katrina Dickinson RN) General Admission Information: Reviewed (04/18/2016 10:52:Katrina Dickinson RN) BELONGINGS/ADVANCED DIRECTIVES Valuables/Personal Effects: Purse/Wallet; Cell Phone (04/18/2016 10:52:Katrina Dickinson RN) Other Belongings: SEE VALUABLES CONSENT (04/18/2016 10:52:Katrina Dickinson RN) Disposition of Belongings: Kept with Patient (04/18/2016 10:52:Katrina Dickinson RN) Advance Direct for Healthcare: No, and Wants No Information (04/18/2016 10:52:Katrina Dickinson RN) Durable Power of Mediation Commissioner: No (04/18/2016 10:52:Katrina Dickinson RN) Living Will: No (04/18/2016 10:52:Katrina Dickinson RN) Organ Donor: Yes (04/18/2016 10:52:Katrina Dickinson RN) Pt Rights Information Given: Yes (04/18/2016 10:52:Katrina Dickinson RN) Pt Understands Pt Rights: Yes (04/18/2016 10:52:Katrina Dickinson RN) LEARNING ASSESSMENT Knowledge Level: Understands L_D Process; Understands Care Activities; Understands Diagnosis (04/18/2016 10:52:Katrina Dickinson RN) Barriers to Learning: None (04/18/2016 10:52:Katrina Dickinson RN) Learning Readiness: Motivated (04/18/2016 10:52:Katrina Dickinson RN) Learns Best By: 1 to 1 Instruction; Reading; Videos; Demonstration (04/18/2016 10:52:Katrina Dickinson RN) Learning Needs: Symptoms to Report; Treatment Plan; Medication; Diagnosis; Nutrition; Equipment (04/18/2016 10:52:Katrina Dickinson RN) DOMESTIC VIOLANCE SCREENING Dom Viol Threatened/Hurt: No (04/18/2016 10:52:Katrina Dickinson RN) Hx of Abuse/Neglect past 2yrs: No (04/18/2016 10:52:Katrina Dickinson RN) Feel Unsafe Going Home: No (04/18/2016 10:52:Katrina Dickinson RN) Addt'l Observ Indicating Abuse: No (04/18/2016 10:52:Katrina Dickinson RN) Reason Unable to Complete Screen: N/A, Screen Completed (04/18/2016 10:52:Katrina Dickinson RN) Considered Personal Harm/Suicide: No (04/18/2016 10:52:Katrina Dickinson RN) NUTRITIONAL/FUNCTIONAL SCREENING Problem with Appetite >5 Days: No (04/18/2016 10:52:Katrina Dickinson RN) Chew/Swallow Difficulties: No (04/18/2016 10:52:Katrina Dickinson RN) Inappropriate Wt Gain/Loss: No (04/18/2016 10:52:Katrina Dickinson RN) Presence Skin Breakdown/Ulcer: No (04/18/2016 10:52:Katrina Dickinson RN) Special Diet: No (04/18/2016 10:52:Katrina Dickinson RN) Pt Requests Medicine Assistant Visit: No (04/18/2016 10:52:Katrina Dickinson RN) Hx of Any of the Following?: N/A (04/18/2016 10:52:Katrina Dickinson RN) New Diagnosis of: N/A (04/18/2016 10:52:Katrina Dickinson RN) Requires Assist w/Ambulation: No (04/18/2016 10:52:Katrina Dickinson RN) Uses Assist Device to Ambulate: No (04/18/2016 10:52:Katrina Dickinson RN) Pt Requires Help w/ADL's: No (04/18/2016 10:52:Katrina Dickinson RN)
--- NOTE | 2016-04-20 10:45 | L&D Admission Assessment ---
LD ADM ASMT Datetime Report Generated by CPN: 04/20/2016 10:45 Assessment Type: Ongoing Assessment (04/18/2016 19:30:Veronique Streeter RN) Assessment Type: Ongoing Assessment (04/18/2016 14:30:VIKI Gillette) Assessment Type: Triage (04/18/2016 10:52:Tanvi Maston RN) Weight (lb): 132 (04/18/2016 21:38:QS system process) Weight (lb): 132 (04/18/2016 16:02:QS system process) Weight (lb): 132 (04/18/2016 14:58:QS system process) Weight (lb): 293 (04/18/2016 14:30:QS system process) Weight (lb): 293 (04/18/2016 14:29:QS system process) Weight (lb): 293 (04/18/2016 14:28:QS system process) Weight (lb): 293 (04/18/2016 10:52:QS system process) Weight (kg): 60.0 (04/18/2016 21:38:QS system process) Weight (kg): 60.0 (04/18/2016 16:02:QS system process) Weight (kg): 60.0 (04/18/2016 14:58:QS system process) Weight (kg): 133.2 (04/18/2016 14:30:QS system process) Weight (kg): 133.2 (04/18/2016 14:29:QS system process) Weight (kg): 133.2 (04/18/2016 14:28:QS system process) Weight (kg): 133.2 (04/18/2016 10:52:QS system process) Total Wt Gain (lb): 8 (04/18/2016 21:38:QS system process) Total Wt Gain (lb): 8 (04/18/2016 16:02:QS system process) Total Wt Gain (lb): 8 (04/18/2016 14:58:QS system process) Total Wt Gain (lb): 169 (04/18/2016 14:30:QS system process) Total Wt Gain (lb): 169 (04/18/2016 14:29:QS system process) Total Wt Gain (lb): 169 (04/18/2016 14:28:QS system process) Total Wt Gain (lb): 169 (04/18/2016 10:52:QS system process) Wt Gain (kg): 3.6 (04/18/2016 21:38:QS system process) Wt Gain (kg): 3.6 (04/18/2016 16:02:QS system process) Wt Gain (kg): 3.6 (04/18/2016 14:58:QS system process) Wt Gain (kg): 76.6 (04/18/2016 14:30:QS system process) Wt Gain (kg): 76.6 (04/18/2016 14:29:QS system process) Wt Gain (kg): 76.6 (04/18/2016 14:28:QS system process) Wt Gain (kg): 76.6 (04/18/2016 10:52:QS system process) BMI: 24.9 (04/18/2016 21:38:QS system process) BMI: 24.9 (04/18/2016 16:02:QS system process) BMI: 24.9 (04/18/2016 14:58:QS system process) BMI: 55.4 (04/18/2016 14:30:QS system process) BMI: 55.4 (04/18/2016 14:29:QS system process) BMI: 55.4 (04/18/2016 14:28:QS system process) Pain Scale: 1 (04/18/2016 19:49:Veronique Streeter RN) Pain Scale: 1 (04/18/2016 19:00:VIKI Gil[place]) Pain Scale: 0 (04/18/2016 17:30:VIKI [place]) Pain Scale: 1 (04/18/2016 15:28:VIKI [place]) Pain Scale: 1 (04/18/2016 10:52:Tanvi Matson RN) Pain Presence: Constant (04/18/2016 20:00:Veronique Streeter RN) Pain Presence: Constant (04/18/2016 19:49:Veronique Streeter RN) Pain Presence: None/Denies (04/18/2016 19:00:VIKI [place]) Pain Presence: Intermittent (04/18/2016 10:52:Tanvi Matson RN) Pain Type: Ache (04/18/2016 20:00:Veronique Streeter RN) Pain Type: Ache (04/18/2016 19:49:Veronique Streeter RN) Pain Type: N/A (04/18/2016 19:00:VIKI [place]) Pain Type: Cramping (04/18/2016 10:52:Tanvi Matson RN) Pain Location: Back (04/18/2016 20:00:Veronique Streeter RN) Pain Location: Abdomen; Back (04/18/2016 19:49:Veronique Streeter RN) Pain Location: Abdomen (04/18/2016 10:52:Tanvi Matson RN) Pain Goal: 1 (04/18/2016 19:49:Veronique Streeter RN) Pain Goal: 0 (04/18/2016 10:52:Tanvi Matson RN) Pain Related to Contraction: Yes (04/18/2016 10:52:Tanvi Matson RN) Pain Comments: Pt denies any contractions, but states having pain of 1 out of 5 constantly in her back (04/18/2016 20:00:Veronique Streeter RN) Pain Comments: Pt states unable to feel any contractions or pressure. (04/18/2016 19:30:Veronique Streeter RN) Pain Comments: denies increase in intensity (04/18/2016 19:00:VIKI [place]) Pain Comments: states reduction in cramping with Procardia and iv fluids (04/18/2016 17:30:VIKI [place]) Pain Comments: watching dvd no complaints (04/18/2016 15:28:VIKI [place]) Frequency (min): 0 (04/18/2016 20:14:Veronique Ring, RN) Frequency (min): x1 (04/18/2016 20:00:Veronique Ring, RN) Frequency (min): x2 (04/18/2016 19:30:Veronique Ring, RN) Frequency (min): irritability (04/18/2016 19:00:Melida Camp, RNC) Frequency (min): irregular (04/18/2016 18:30:[place], RNC) Frequency (min): 1-2 (04/18/2016 17:00:[place], RNC) Frequency (min): irregular (04/18/2016 16:00:[place], RNC) Frequency (min): 3-4 (04/18/2016 15:30:[place], RNC) Frequency (min): 1-3 (04/18/2016 15:00:[place], RNC) Frequency (min): 1-3 (04/18/2016 14:30:[place], RNC) Frequency (min): IRRITABLITY NOTED (04/18/2016 14:00:Tanvi Halsmer, RN) Frequency (min): 2-4 (04/18/2016 13:30:Tanvi Halsmer, RN) Frequency (min): 2-4 (04/18/2016 11:30:Tanvi Halsmer, RN) Frequency (min): 2-4 (04/18/2016 11:00:Tanvi Halsmer, RN) Frequency (min): 4 mins (04/18/2016 10:52:Tanvi Halsmer, RN) Duration (sec): 60 (04/18/2016 20:00:Veronique Ring, RN) Duration (sec): 50-70 (04/18/2016 19:30:Veronique Ring, RN) Duration (sec): 30-45 (04/18/2016 19:00:[place], RNC) Duration (sec): 40-60 (04/18/2016 18:30:[place], RNC) Duration (sec): 40-60 (04/18/2016 17:00:[place], RNC) Duration (sec): 30-50 (04/18/2016 16:00:[place], RNC) Duration (sec): 40-50 (04/18/2016 15:30:[place], RNC) Duration (sec): 30-50 (04/18/2016 15:00:[place], RNC) Duration (sec): 40-50 (04/18/2016 14:30:[place], RNC) Duration (sec): 40-60 (04/18/2016 13:30:Tanvi Matson, RN) Duration (sec): 50-80 (04/18/2016 11:30:Tanvi Matson, RN) Duration (sec): 50-80 (04/18/2016 11:00:Tanvi Matson, RN) Quality: Mild (04/18/2016 20:00:Veronique Streeter RN) Quality: Mild (04/18/2016 19:30:Veronique Streeter, RN) Quality: Mild (04/18/2016 19:00:[place], RNC) Quality: Mild (04/18/2016 18:30:[place], RNC) Quality: Mild (04/18/2016 17:00:[place], RNC) Quality: Mild (04/18/2016 16:00:[place], RNC) Quality: Mild (04/18/2016 15:30:[place], RNC) Quality: Mild (04/18/2016 15:00:[place], RNC) Quality: Mild (04/18/2016 14:30:[place], RNC) Quality: Mild (04/18/2016 14:00:Tanvi Matson RN) Quality: Mild (04/18/2016 13:30:Tanvi Matson RN) Quality: Mild (04/18/2016 11:30:Tanvi Matson RN) Quality: Mild (04/18/2016 11:00:Tanvi Matson RN) Pattern: Normal: <= 5 Contractions in 10 Minutes (04/18/2016 19:00:[place], RNC) Pattern: Normal: <= 5 Contractions in 10 Minutes (04/18/2016 18:30:[place], RNC) Pattern: Normal: <= 5 Contractions in 10 Minutes (04/18/2016 16:00:[place], RNC) Pattern: Normal: <= 5 Contractions in 10 Minutes (04/18/2016 15:00:[place], RNC) Resting Tone [place]: Relaxed (04/18/2016 20:14:Veronique Streeter, RN) Resting Tone [place]: Relaxed (04/18/2016 20:00:Veronique Streeter, RN) Resting Tone [place]: Relaxed (04/18/2016 19:30:Veronique Streeter, RN) Resting Tone [place]: Relaxed (04/18/2016 19:00:[place], RNC) Resting Tone [place]: Relaxed (04/18/2016 18:30:[place], RNC) Resting Tone [place]: Relaxed (04/18/2016 17:00:[place], RNC) Resting Tone [place]: Relaxed (04/18/2016 16:00:[place], RNC) Resting Tone [place]: Relaxed (04/18/2016 15:30:[place], RNC) Resting Tone [place]: Relaxed (04/18/2016 15:00:[place], RNC) Resting Tone [place]: Relaxed (04/18/2016 14:30:[place], RNC) Resting Tone [place]: Relaxed (04/18/2016 14:00:Tanvi Matson RN) Resting Tone [place]: Relaxed (04/18/2016 13:30:Tanvi Matson RN) Resting Tone [place]: Relaxed (04/18/2016 11:30:Tanvi Matson RN) Resting Tone [place]: Relaxed (04/18/2016 11:00:Tanvi Matson RN) Contraction Comments: irritability (04/18/2016 19:30:Veronique Streeter, RN) Contraction Comments: states decrease in cramping (04/18/2016 18:30:[place], RNC) Contraction Comments: irritability noted (04/18/2016 16:00:[place], RNC) Contraction Comments: irregular/ irritable pattern (04/18/2016 15:00:[place], RNC) Membranes Status: Intact (04/18/2016 10:52:Tanvi Matson RN) Level of Consciousness: Fully Conscious (04/18/2016 19:30:Veronique Streeter, RN) Level of Consciousness: Fully Conscious (04/18/2016 14:30:VIKI Gillette) Level of Consciousness: Fully Conscious (04/18/2016 10:52:Tanvi Matson RN) DTR's/Clonus: DTRs 2+; No Clonus (04/18/2016 19:30:Veronique Streeter RN) DTR's/Clonus: DTRs 1+ (04/18/2016 14:30:VIKI Gillette) DTR's/Clonus: DTRs 2+ (04/18/2016 10:52:Tanvi Matson RN) Headache: Denies (04/18/2016 19:30:Veronique Streeter RN) Headache: Denies (04/18/2016 14:30:VIKI Gil[place]) Headache: Denies (04/18/2016 10:52:Tanvi Matson RN) Dizziness: No (04/18/2016 19:30:Veronique Streeter RN) Dizziness: No (04/18/2016 14:30:Melida Mosley RN) Dizziness: No (04/18/2016 10:52:Tanvi Matson RN) Blurred Vision: No (04/18/2016 19:30:Veronique Streeter RN) Blurred Vision: No (04/18/2016 14:30:VIKI [place]) Blurred Vision: No (04/18/2016 10:52:Tanvi Matson RN) Extremity Numbness/Tingling : None (04/18/2016 19:30:Veronique Streeter RN) Extremity Numbness/Tingling : None (04/18/2016 14:30:VIKI Gillette) Extremity Numbness/Tingling : None (04/18/2016 10:52:Tanvi Matson RN) Extremity Movement: Full Range of Motion (04/18/2016 19:30:Veronique Streeter RN) Extremity Movement: Full Range of Motion (04/18/2016 14:30:VIKI Gillette) Extremity Movement: Full Range of Motion (04/18/2016 10:52:Tanvi Matson RN) Heart Rhythm: Regular (04/18/2016 19:30:Veronique Streeter RN) Heart Rhythm: Regular (04/18/2016 10:52:Tanvi Matson RN) Nailbeds: [place] (04/18/2016 19:30:Veronique Streeter RN) Nailbeds: [place] (04/18/2016 14:30:VIKI Gillette) Nailbeds: [place] (04/18/2016 10:52:Tanvi Matson RN) Capillary Refill: Less than 3 Seconds (04/18/2016 19:30:Veronique Streeter RN) Capillary Refill: Less than 3 Seconds (04/18/2016 14:30:VIKI Gillette) Capillary Refill: Less than 3 Seconds (04/18/2016 10:52:Tanvi Matson RN) Lower Extremities Edema: None (04/18/2016 19:30:Veronique Streeter RN) Lower Extremities Edema: Bilateral Lower Extremities (04/18/2016 14:30:VIKI Gil[place]) Lower Extremities Edema: Bilateral Lower Extremities (04/18/2016 10:52:Tanvi Matson RN) Lower Extremities Edema Degree: 1+ (04/18/2016 14:30:VIKI Gil[place]) Lower Extremities Edema Degree: 2+ (04/18/2016 10:52:Tanvi Matson RN) Upper Extremities Edema: None (04/18/2016 19:30:Veronique Streeter RN) Upper Extremities Edema: None (04/18/2016 14:30:VIKI Gil[place]) Upper Extremities Edema: Bilateral Upper Extremities (04/18/2016 10:52:Tanvi Matson RN) Upper Extremities Edema Degree: None (04/18/2016 14:30:VIKI Gillette) Upper Extremities Edema Degree: 1+ (04/18/2016 10:52:Tanvi Matson RN) Facial Edema: None (04/18/2016 19:30:Veronique Streeter RN) Facial Edema: None (04/18/2016 14:30:VIKI Gillette) Facial Edema: 1+ (04/18/2016 10:52:Tanvi Matson RN) Marilin's Sign Left Leg: Negative (04/18/2016 19:30:Veronique Streeter RN) Marilin's Sign Left Leg: Negative (04/18/2016 14:30:VIKI Gillette) Marilin's Sign Left Leg: Negative (04/18/2016 10:52:Tanvi Matson RN) Marilin's Sign Right Leg: Negative (04/18/2016 19:30:Veronique Streeter RN) Marilin's Sign Right Leg: Negative (04/18/2016 14:30:VIKI Gillette) Marilin's Sign Right Leg: Negative (04/18/2016 10:52:Tanvi Matson RN) DVT Risk Age: Age less than 41 years (04/18/2016 19:30:Veronique Streeter RN) DVT Risk Age: Age less than 41 years (04/18/2016 14:30:VIKI Gillette) DVT Risk Age: Age less than 41 years (04/18/2016 10:52:Tanvi Matson RN) DVT Risk BMI: BMI<31 (04/18/2016 19:30:Veronique Streeter RN) DVT Risk BMI: BMI<31 (04/18/2016 14:30:VIKI Gillette) DVT Risk BMI: BMI<31 (04/18/2016 10:52:Tanvi Matson RN) DVT Risk Surgery: History of Prior Major Surgery (Annotations: C- Section in 2014, breast augmentation in 2001) (04/18/2016 19:30:Veronique Streeter RN) DVT Risk Surgery: History of Prior Major Surgery (04/18/2016 14:30:VIKI Gil[place]) DVT Risk Surgery: History of Prior Major Surgery (04/18/2016 10:52:Tanvi Matson RN) DVT Risk Other: Women Only- or (<1 month) (04/18/2016 19:30:Veronique Streeter RN) DVT Risk Other: Women Only- or (<1 month) (04/18/2016 14:30:VIKI Gillette) DVT Risk Other: None Applicable (04/18/2016 10:52:Tanvi Matson RN) DVT Risk Total: 2 (04/18/2016 19:30:QS system process) DVT Risk Total: 2 (04/18/2016 14:30:QS system process) DVT Risk Total: 1 (04/18/2016 10:52:QS system process) DVT Risk Text: Moderate Risk (10-20%) - Consider stockings, compresssion device, pharmacological therapy per hospital policy (04/18/2016 19:30:QS system process) DVT Risk Text: Moderate Risk (10-20%) - Consider stockings, compresssion device, pharmacological therapy per hospital policy (04/18/2016 14:30:QS system process) DVT Risk Text: Low Risk (<10%) No specific measures, early ambulation (04/18/2016 10:52:QS system process) Respiratory Effort: Unlabored; Regular Rhythm; Equal Expansion (04/18/2016 19:30:Veronique Streeter RN) Respiratory Effort: Unlabored; Regular Rhythm; Equal Expansion (04/18/2016 14:30:VIKI Gillette) Respiratory Effort: Unlabored; Regular Rhythm; Equal Expansion (04/18/2016 10:52:Tanvi Matson RN) Breath Sounds, Left: Clear and Equal (04/18/2016 19:30:Veronique Streeter RN) Breath Sounds, Left: Clear and Equal (04/18/2016 14:30:VIKI Gil[place]) Breath Sounds, Left: Clear and Equal (04/18/2016 10:52:Tanvi Matson RN) Breath Sounds, Right: Clear and Equal (04/18/2016 19:30:Veronique Streeter RN) Breath Sounds, Right: Clear and Equal (04/18/2016 14:30:VIKI [place]) Breath Sounds, Right: Clear and Equal (04/18/2016 10:52:Tanvi Matson RN) Cough Productivity: Nonproductive (04/18/2016 19:30:Veronique Streeter RN) Cough Productivity: None (04/18/2016 14:30:VIKI Gil[place]) Cough Productivity: None (04/18/2016 10:52:Tanvi Matson RN) Nausea/Vomiting: Denies (04/18/2016 19:30:Veronique Streeter RN) Nausea/Vomiting: Denies (04/18/2016 14:30:VIKI [place]) Nausea/Vomiting: Denies (04/18/2016 10:52:Tanvi Matson RN) Bowel Sounds: Normoactive; All Quadrants (04/18/2016 19:30:Veronique Streeter RN) Bowel Sounds: Normoactive (04/18/2016 14:30:VIKI Gillette) Bowel Sounds: Normoactive (04/18/2016 10:52:Tanvi Matson RN) RUQ Epigastric Pain: Denies (04/18/2016 19:30:Veronique Streeter RN) RUQ Epigastric Pain: Denies (04/18/2016 14:30:VIKI [place]) RUQ Epigastric Pain: Denies (04/18/2016 10:52:Tanvi Matson RN) Bowel Patterns: Soft, Formed Stool (04/18/2016 19:30:Veronique Streeter RN) Bowel Patterns: Soft, Formed Stool (04/18/2016 14:30:VIKI Gil[place]) Bowel Patterns: Soft, Formed Stool (04/18/2016 10:52:Tanvi Matson RN) Hemorrhoids: None (04/18/2016 10:52:Tanvi Matson RN) Diet Type: Regular diet (04/18/2016 19:30:Veronique Streeter RN) Diet Type: Regular diet (Annotations: reviewed [address] process) (04/18/2016 14:30:VIKI Gil[place]) Diet Type: Regular diet (04/18/2016 10:52:Tanvi Matson RN) Last Meal: PT STATED SHE HADN'T EATTEN THIS AM (04/18/2016 10:52:Tanvi Matson RN) Bladder: Nondistended (04/18/2016 19:30:Veronique Streeter RN) Bladder: Nondistended (04/18/2016 10:52:Tanvi Matson RN) Frequency of Urination: No (04/18/2016 19:30:Veronique Streeter RN) Frequency of Urination: Yes (04/18/2016 10:52:Tanvi Matson RN) Urination Burning: No (04/18/2016 19:30:Veronique Streeter RN) Urination Burning: No (04/18/2016 10:52:Tanvi Matson RN) CVA Tenderness: No (04/18/2016 19:30:Veronique Streeter RN) CVA Tenderness: No (04/18/2016 10:52:Tanvi Matson RN) Vaginal Bleeding: None (04/18/2016 10:52:Tanvi Matson RN) Vaginal Discharge Amount: None (04/18/2016 19:30:Veronique Streeter RN) Vaginal Discharge Amount: Small (04/18/2016 14:30:VIKI Gillette) Vaginal Discharge Amount: Small (04/18/2016 10:52:Tanvi Matson RN) Vaginal Discharge Color: N/A (04/18/2016 19:30:Veronique Streeter RN) Vaginal Discharge Color: White (04/18/2016 14:30:VIKI Gillette) Vaginal Discharge Color: White (04/18/2016 10:52:Tanvi Matson RN) Vaginal Discharge Odor: Non-Odorous (04/18/2016 14:30:VIKI Gillette) Vaginal Discharge Odor: Non-Odorous (04/18/2016 10:52:Tanvi Matson RN) Vaginal Discharge Character: Thin (04/18/2016 14:30:VIKI Gillette) Vaginal Discharge Character: Thin (04/18/2016 10:52:Tanvi Matson RN) Skin Color: Normal for Race (04/18/2016 19:30:Veronique Streeter RN) Skin Color: Normal for Race (04/18/2016 14:30:VIKI Gillette) Skin Color: Normal for Race (04/18/2016 10:52:Tanvi Matson RN) Skin Temperature: Cool (04/18/2016 19:30:Veronique Srteeter RN) Skin Temperature: Warm (04/18/2016 14:30:VIKI Gillette) Skin Temperature: Warm (04/18/2016 10:52:Tanvi Matson RN) Skin Moisture: Dry (04/18/2016 14:30:VIKI Gillette) Skin Moisture: Dry (04/18/2016 10:52:Tanvi Matson RN) Surgical Scars: ; breast augmentation (04/18/2016 19:30:eVronique Streeter RN) Surgical Scars: low transverse previous c/s (04/18/2016 14:30:VIKI Gillette) Surgical Scars: LOWER ABDOMINAL (04/18/2016 10:52:Tanvi Matson RN) Body Piercings/Tattoos: multiple tattoos (04/18/2016 14:30:VIKI Gillette) Pete Scale Sensory Perception: No Impairment- Responds to verbal commands. Has no sensory deficit which would limit ability to feel or voice pain or discomfort (04/18/2016 19:30:Veronique Streeter RN) Pete Scale Sensory Perception: No Impairment- Responds to verbal commands. Has no sensory deficit which would limit ability to feel or voice pain or discomfort (04/18/2016 10:52:Tanvi Matson RN) Pete Scale Moisture: Rarely Moist- Skin is usually dry. Linen only requires changing at routine intervals (04/18/2016 19:30:Veronique Streeter RN) Pete Scale Moisture: Rarely Moist- Skin is usually dry. Linen only requires changing at routine intervals (04/18/2016 10:52:Tanvi Matson RN) Pete Scale Activity: Walks Frequently- Walks outside the room at least twice a day and inside room at least every 2 hours during the day. (04/18/2016 19:30:Veronique Streeter RN) Pete Scale Activity: Walks Frequently- Walks outside the room at least twice a day and inside room at least every 2 hours during the day. (04/18/2016 10:52:Tanvi Matson RN) Pete Scale Mobility: No Limitations- Makes major and frequent changes in position without assistance (04/18/2016 19:30:Veronique Streeter RN) Pete Scale Mobility: No Limitations- Makes major and frequent changes in position without assistance (04/18/2016 10:52:Tanvi Matson RN) Pete Scale Nutrition: Excellent- Eats most of every meal. Never refuses a meal. Usually eats a total of 4 or more servings of meat and dairy products. Occasionally eats between meals. Does not require supplementation (04/18/2016 19:30:Veronique Streeter RN) Pete Scale Nutrition: Excellent- Eats most of every meal. Never refuses a meal. Usually eats a total of 4 or more servings of meat and dairy products. Occasionally eats between meals. Does not require supplementation (04/18/2016 10:52:Tanvi Matson RN) Pete Scale Friction and Shear: No Apparent Problem- Moves in bed and in chair independently and has sufficient muscle strength to lift up completely during move. Maintains good position in bed or chair at all times (04/18/2016 19:30:Veronique Streeter RN) Pete Scale Friction and Shear: No Apparent Problem- Moves in bed and in chair independently and has sufficient muscle strength to lift up completely during move. Maintains good position in bed or chair at all times (04/18/2016 10:52:Tanvi Matson RN) Pete Scale Total: 23 (04/18/2016 19:30:QS system process) Pete Scale Total: 23 (04/18/2016 10:52:QS system process) Pete Scale Risk: No Risk of Pressure Ulcer Noted at this Time (04/18/2016 19:30:QS system process) Pete Scale Risk: No Risk of Pressure Ulcer Noted at this Time (04/18/2016 10:52:QS system process) Family Support: Significant Other supportive, at bedside frequently; Child(elenita) visited (04/18/2016 19:30:Veronique Streeter RN) Family Support: Significant Other supportive, at bedside frequently (Annotations: JESSE Simpson at bedside, appears supportive) (04/18/2016 14:30:VIKI Gillette) Family Support: Significant Other supportive, at bedside frequently (04/18/2016 10:52:Tanvi Matson RN) Emotional State: Calm/Relaxed (04/18/2016 19:30:Veronique Streeter RN) Emotional State: Calm/Relaxed (04/18/2016 14:30:VIKI Gil[place]) Emotional State: Calm/Relaxed (04/18/2016 10:52:Tanvi Matson RN) Call [place] Within Reach: Yes (04/18/2016 19:30:Veronique Streeter RN) Call [place] Within Reach: Yes (04/18/2016 14:30:VIKI Gillette) Call [place] Within Reach: Yes (04/18/2016 10:52:Tanvi Matson RN) Side Rails Up: Yes (04/18/2016 19:30:Veronique Streeter RN) Side Rails Up: Yes (04/18/2016 14:30:VIKI Gillette) Side Rails Up: Yes (04/18/2016 10:52:Tanvi Matson RN) Bed Wheels Locked: Yes (04/18/2016 19:30:Veronique Streeter RN) Bed Wheels Locked: Yes (04/18/2016 14:30:VIKI Gillette) Bed Wheels Locked: Yes (04/18/2016 10:52:Tanvi Matson RN) Arm Bands Present: Yes (04/18/2016 19:30:Veronique Streeter RN) Arm Bands Present: Yes (04/18/2016 14:30:VIKI Gillette) Arm Bands Present: Yes (04/18/2016 10:52:Tanvi Matson RN) Isolation: [place] (04/18/2016 19:30:Veronique Streeter RN) Isolation: [place] (04/18/2016 14:30:VIKI Gillette) Isolation: [place] (04/18/2016 10:52:Tanvi Matson RN) Fall Risk History of Falling: (0) No (04/18/2016 19:30:Veronique Streeter RN) Fall Risk History of Falling: (0) No (04/18/2016 10:52:Tanvi Matson RN) Fall Risk Secondary Diagnosis: (0) No (04/18/2016 19:30:Veronique Streeter RN) Fall Risk Secondary Diagnosis: (15) Yes (04/18/2016 10:52:Tanvi Matson RN) Fall Risk Ambulatory Aid: (0) None/Bedrest/Wheelchair/Nurse Assist (04/18/2016 19:30:Veronique Streeter RN) Fall Risk Ambulatory Aid: (0) None/Bedrest/Wheelchair/Nurse Assist (04/18/2016 10:52:Tanvi Matson RN) Fall Risk IV Therapy: (0) No (04/18/2016 19:30:Veronique Streeter RN) Fall Risk IV Therapy: (20) Yes (04/18/2016 10:52:Tanvi Matson RN) Fall Risk Gait: (0) Normal/Bedrest/Immobile (04/18/2016 19:30:Veronique Streeter RN) Fall Risk Gait: (0) Normal/Bedrest/Immobile (04/18/2016 10:52:Tanvi Matson RN) Fall Risk Mental Status: (0) Oriented to Own Ability (04/18/2016 19:30:Veronique Streeter RN) Fall Risk Mental Status: (0) Oriented to Own Ability (04/18/2016 10:52:Tanvi Matson RN) Fall Risk Score: 0 (04/18/2016 19:30:QS system process) Fall Risk Score: 35 (04/18/2016 10:52:QS system process) Fall Risk Score Definition: No Risk: No action required (04/18/2016 19:30:QS system process) Fall Risk Score Definition: Low Risk: Please see standard fall prevention interventions (04/18/2016 10:52:QS system process) Recent Exp Communicable Disease: No (04/18/2016 19:30:Veronique Streeter RN) Recent Exp Communicable Disease: No (04/18/2016 10:52:Tanvi Matson RN) Cough or Fever: No (04/18/2016 19:30:Veronique Streeter RN) Cough or Fever: No (04/18/2016 10:52:Tanvi Matson RN) Foreign Travel Past 10 Days: No (04/18/2016 19:30:Veronique Streeter RN) Foreign Travel Past 10 Days: No (04/18/2016 10:52:Tanvi Matson RN) Open Wounds or Sores: No (04/18/2016 19:30:Veronique Streeter RN) Open Wounds or Sores: No (04/18/2016 10:52:Tanvi Matson RN) Prior Antibiotic Resistance Tx: No (04/18/2016 19:30:Veronique Streeter RN) Prior Antibiotic Resistance Tx: No (04/18/2016 10:52:Tanvi Matson RN) Cultures Obtained: Not Applicable (04/18/2016 19:30:Veronique Streeter RN) Cultures Obtained: Not Applicable (04/18/2016 10:52:Tanvi Matson RN) Isolation Initiated: No (04/18/2016 19:30:Veronique Streeter RN) Isolation Initiated: No (04/18/2016 10:52:Tanvi Matson RN) Pt/Family Education: Handwashing Hygiene (04/18/2016 19:30:Veronique Streeter RN) Pt/Family Education: Not Applicable (04/18/2016 10:52:Tanvi Matson RN) FHR Baseline Rate (bpm) Baby A: 140 (04/18/2016 14:00:Tanvi Matson RN) FHR Baseline Rate (bpm) Baby A: 135 (04/18/2016 13:30:Tanvi Matson RN) FHR Baseline Rate (bpm) Baby A: 135 (04/18/2016 11:30:Tanvi Matson RN) FHR Baseline Rate (bpm) Baby A: 135 (04/18/2016 11:00:Tanvi Matson RN) Variability Baby A: Moderate 6-25 bpm (04/18/2016 14:00:Tanvi Matson RN) Variability Baby A: Moderate 6-25 bpm (04/18/2016 13:30:Tanvi Matson RN) Variability Baby A: Moderate 6-25 bpm (04/18/2016 11:30:Tanvi Matsno RN) Variability Baby A: Moderate 6-25 bpm (04/18/2016 11:00:Tanvi Matson RN) Accelerations Baby A: 15X15 (04/18/2016 14:00:Tanvi Matson RN) Accelerations Baby A: 15X15 (04/18/2016 11:30:Tanvi Matson RN) Accelerations Baby A: 15X15 (04/18/2016 11:00:Tanvi Matson RN) Decelerations Baby A: None (04/18/2016 14:00:Tanvi Matson RN) Decelerations Baby A: None (04/18/2016 13:30:Tanvi Matson RN) Decelerations Baby A: None (04/18/2016 11:30:Tanvi Matson RN) Decelerations Baby A: None (04/18/2016 11:00:Tanvi Matson RN)
== END 2016-04-20 10:00 | disposition home or self-care (01) ==
LOC: LC 10:06 → EEVIPCON 14:03 → LR 14:03 → 2N 20:30
PROVIDERS: ADMIT Obstetrics & Gynecology; ATTEND Obstetrics & Gynecology
DX: O60.03 Preterm labor without delivery, third trimester (principal); Z3A.28 28 weeks gestation of pregnancy
CPT/HCPCS: 59025; 84112; 36415; 87086; 85025; 81001; 80307; 76815; G0378 ×3; J3490; J0702 ×2

== ENCOUNTER 2016-05-07 00:50 | Outpatient (CLI) | payer OTHER ==
[2016-05-07] MEDS ORDERED: RINGERS SOLUTION,LACTATED 1,000 ML IV PRN (01:10)
[2016-05-07] MEDS ORDERED: PROCHLORPERAZINE EDISYLATE INJ 10 MG/2 ML VIAL IV ONE (01:24)
[2016-05-07 01:27] LABS: APPEARANCE,URINE CLEAR; BILIRUBIN,URINE NEGATIVE (NEGATIVE); GLUCOSE, URINE NEGATIVE (NEGATIVE); KETONES,URINE NEGATIVE (NEGATIVE); LEUKOCYTE ESTERASE,URINE NEGATIVE (NEGATIVE); NITRITE,URINE NEGATIVE (NEGATIVE); PROTEIN,URINE NEGATIVE (NEGATIVE); URINE SPECIFIC GRAVITY 1.004; UROBILINOGEN,URINE NEGATIVE mg/dL (<2.0)
[2016-05-07] MEDS ORDERED: PROCHLORPERAZINE EDISYLATE INJ 10 MG/2 ML VIAL ONE (01:29)
[2016-05-07 02:33] LABS: URINE BARBITURATES SCREEN NEGATIVE; URINE METHADONE SCREEN NEGATIVE; URINE OPIATES LOW NEGATIVE; URINE PHENCYCLIDINE SCREEN NEGATIVE
--- NOTE | 2016-05-07 10:46 | L&D Admission Assessment ---
LD ADM ASMT Datetime Report Generated by CPN: 05/07/2016 10:45 PATIENT ASSESSMENT Assessment Type: Triage (05/07/2016 01:06:Crystal Appleton, RN) Assessment Type: Triage (05/07/2016 01:02:Crystal Appleton, RN) Assessment Type: Triage (05/07/2016 01:00:Crystal Appleton, RN) WEIGHT Weight (lb): 136 (05/07/2016 01:30:QS system process) Weight (kg): 61.8 (05/07/2016 01:30:QS system process) Total Wt Gain (lb): 12 (05/07/2016 01:30:QS system process) Wt Gain (kg): 5.6 (05/07/2016 01:30:QS system process) BMI: 25.7 (05/07/2016 01:30:QS system process) PAIN Pain Scale: 1 (05/07/2016 01:02:Crystal Imani, RN) Pain Presence: Intermittent (05/07/2016 01:02:Crystal Appleton, RN) Pain Type: Contraction (05/07/2016 01:02:Crystal Imani, RN) Pain Location: Back (05/07/2016 01:02:Crystal Imani, RN) Pain Goal: 1 (05/07/2016 01:02:Crystal Appleton, RN) Pain Related to Contraction: Yes (05/07/2016 01:02:Crystal Imani, RN) CONTRACTIONS Frequency (min): irritability (05/07/2016 06:00:Crystal Appleton, RN) Frequency (min): 0 (05/07/2016 05:30:Crystal Imani, RN) Frequency (min): 0 (05/07/2016 05:00:Crystal Imani, RN) Frequency (min): 0 (05/07/2016 04:30:Crystal Appleton, RN) Frequency (min): x1 (05/07/2016 04:00:Crystal Appleton, RN) Frequency (min): x1 (05/07/2016 03:30:Crystal Appleton, RN) Frequency (min): x1 (05/07/2016 03:00:Crystal Imani, RN) Frequency (min): x2 (05/07/2016 02:30:Crystal Imani, RN) Frequency (min): 6 (05/07/2016 01:59:Crystal Imani, RN) Frequency (min): 1.5-3 (05/07/2016 01:38:Crystal Imani, RN) Frequency (min): 3-4 (05/07/2016 01:18:Crystal Imani, RN) Duration (sec): 70 (05/07/2016 04:00:Crystal Appleton, RN) Duration (sec): 60 (05/07/2016 03:30:Crystal Imani, RN) Duration (sec): 70 (05/07/2016 03:00:Crystal Appleton, RN) Duration (sec): 60-70 (05/07/2016 02:30:Crystal Appleton, RN) Duration (sec): 70-90 (05/07/2016 01:59:Crystal Imani, RN) Duration (sec): 40-90 (05/07/2016 01:38:Crystal Appleton, RN) Duration (sec): 50-70 (05/07/2016 01:18:Crystal Appleton, RN) Quality: Mild (05/07/2016 04:00:Crystal Imani, RN) Quality: Mild (05/07/2016 03:30:Crystal Appleton, RN) Quality: Mild (05/07/2016 03:00:Crystal Imani, RN) Quality: Mild (05/07/2016 02:30:Crystal Appleton, RN) Quality: Mild (05/07/2016 01:59:Olena Diallo, RN) Quality: Mild/Moderate (05/07/2016 01:38:Olena Santosergrass, RN) Quality: Mild (05/07/2016 01:18:Olena Diallo RN) Resting Tone Jackpot: Relaxed (05/07/2016 06:00:Olena Santosergbhumi RN) Resting Tone Jackpot: Relaxed (05/07/2016 05:30:Olena Appleton, RN) Resting Tone Jackpot: Relaxed (05/07/2016 05:00:Olena Imani, RN) Resting Tone Jackpot: Relaxed (05/07/2016 04:30:Olena Appleton, RN) Resting Tone Jackpot: Relaxed (05/07/2016 04:00:Olena Santosergrass RN) Resting Tone Jackpot: Relaxed (05/07/2016 03:30:Olena Appleton, RN) Resting Tone Jackpot: Relaxed (05/07/2016 03:00:Olena Santosergbhumi RN) Resting Tone Jackpot: Relaxed (05/07/2016 02:30:Olena Appleton, RN) Resting Tone Jackpot: Relaxed (05/07/2016 01:59:Olena Santosergbhumi RN) Resting Tone Jackpot: Relaxed (05/07/2016 01:38:Olena Diallo RN) Resting Tone Jackpot: Relaxed (05/07/2016 01:18:Olena Imani, RN) VAGINAL EXAM Dilatation (cm): 1.0 (05/07/2016 01:06:Olena Diallo RN) Membranes Status: Intact (05/07/2016 01:02:Crystal Imani, RN) BARBOZA'S SCORE Barboza's Score Consistency: Soft (05/07/2016 01:02:Crystal Imani, RN) NEURO Level of Consciousness: Fully Conscious (05/07/2016 01:02:Crystal Appleton, RN) DTR's/Clonus: DTRs 2+; No Clonus (05/07/2016 01:02:Crystal Appleton, RN) Headache: Generalized (05/07/2016 01:02:Crystal Imani, RN) Dizziness: No (05/07/2016 01:02:Crystal Imani, RN) Blurred Vision: No (05/07/2016 01:02:Crystal Imani, RN) Extremity Numbness/Tingling : None (05/07/2016 01:02:Crystal Appleton, RN) Extremity Movement: Full Range of Motion (05/07/2016 01:02:Crystal Appleton, RN) CARDIOVASCULAR Heart Rhythm: Regular (05/07/2016 01:02:Olena Diallo RN) Nailbeds: [place] (05/07/2016 01:02:Olena Diallo RN) Capillary Refill: Less than 3 Seconds (05/07/2016 01:02:Olena Diallo RN) Facial Edema: None (05/07/2016 01:02:Olena Diallo RN) Marilin's Sign Left Leg: Negative (05/07/2016 01:02:Olena Diallo RN) Marilin's Sign Right Leg: Negative (05/07/2016 01:02:Olena Diallo RN) DVT RISK ASSESSMENT DVT Risk Age: Age less than 41 years (05/07/2016 01:02:Olena Diallo RN) DVT Risk BMI: BMI<31 (05/07/2016 01:02:Olena Diallo RN) DVT Risk Surgery: History of Prior Major Surgery (Annotations: c section 2014) (05/07/2016 01:02:Olena Diallo RN) DVT Risk Other: None Applicable (05/07/2016 01:02:LIV Briseno DVT Risk Total: 1 (05/07/2016 01:02:QS system process) DVT Risk Text: Low Risk (<10%) No specific measures, early ambulation (05/07/2016 01:02:QS system process) RESPIRATORY Respiratory Effort: Unlabored; Regular Rhythm; Equal Expansion (05/07/2016 01:02:Olena Diallo RN) Breath Sounds, Left: Clear and Equal (05/07/2016 01:02:Olena Diallo RN) Breath Sounds, Right: Clear and Equal (05/07/2016 01:02:Olena Diallo RN) Cough Productivity: None (05/07/2016 01:02:Olena Diallo RN) GASTROINTESTINAL Nausea/Vomiting: Denies (05/07/2016 01:02:Olena Diallo RN) Bowel Sounds: Normoactive (05/07/2016 01:02:Olena Diallo RN) RUQ Epigastric Pain: Denies (05/07/2016 01:02:Olena Diallo RN) Response to Antacids: Pain Relieved (05/07/2016 01:02:Olena Diallo RN) Bowel Patterns: Soft, Formed Stool (05/07/2016 01:02:Olena Diallo RN) Hemorrhoids: None (05/07/2016 01:02:Olena Diallo RN) Diet Type: Regular diet (05/07/2016 01:02:Olena Diallo RN) Last Meal: 05/07/2016 20:00 (05/07/2016 01:02:Olena Diallo RN) GENITOURINARY Bladder: Nondistended (05/07/2016 01:02:Olena Diallo RN) Frequency of Urination: No (05/07/2016 01:02:Olena Diallo RN) Urination Burning: No (05/07/2016 01:02:Olena Diallo RN) CVA Tenderness: No (05/07/2016 01:02:Olena Diallo RN) Vaginal Bleeding: None (05/07/2016 01:02:Olena Diallo RN) Vaginal Discharge Amount: None (05/07/2016 01:02:Olena Diallo RN) Vaginal Discharge Color: N/A (05/07/2016 01:02:Olena Diallo RN) Vaginal Discharge Character: None (05/07/2016 01:02:Olena Diallo RN) INTEGUMENTARY Skin Color: Normal for Race (05/07/2016 01:02:Olena Diallo RN) Skin Temperature: Warm (05/07/2016 01:02:Olena Diallo RN) Skin Moisture: Dry (05/07/2016 01:02:Olena Diallo RN) Surgical Scars: c section (05/07/2016 01:02:Olena Diallo RN) Body Piercings/Tattoos: tattoos (05/07/2016 01:02:Olena Diallo RN) SHON SKIN ASSESSMENT Shon Scale Sensory Perception: No Impairment- Responds to verbal commands. Has no sensory deficit which would limit ability to feel or voice pain or discomfort (05/07/2016 01:02:Olena Diallo RN) Shon Scale Moisture: Rarely Moist- Skin is usually dry. Linen only requires changing at routine intervals (05/07/2016 01:02:Olena Diallo RN) Shon Scale Activity: Walks Frequently- Walks outside the room at least twice a day and inside room at least every 2 hours during the day. (05/07/2016 01:02:Olena Diallo RN) Shon Scale Mobility: No Limitations- Makes major and frequent changes in position without assistance (05/07/2016 01:02:Olena Diallo RN) Shon Scale Nutrition: Excellent- Eats most of every meal. Never refuses a meal. Usually eats a total of 4 or more servings of meat and dairy products. Occasionally eats between meals. Does not require supplementation (05/07/2016 01:02:Olena Diallo RN) Shon Scale Friction and Shear: No Apparent Problem- Moves in bed and in chair independently and has sufficient muscle strength to lift up completely during move. Maintains good position in bed or chair at all times (05/07/2016 01:02:Olena Diallo RN) Shon Scale Total: 23 (05/07/2016 01:02:QS system process) Shon Scale Risk: No Risk of Pressure Ulcer Noted at this Time (05/07/2016 01:02:QS system process) SUPPORT Family Support: Significant Other supportive, at bedside frequently (05/07/2016 01:02:Olena Diallo RN) Emotional State: Calm/Relaxed (05/07/2016 01:02:Olena Diallo RN) SAFETY Call [place] Within Reach: Yes (05/07/2016 01:02:Olena Diallo RN) Side Rails Up: Yes (05/07/2016 01:02:Olena Diallo RN) Bed Wheels Locked: Yes (05/07/2016 01:02:Olena Diallo RN) Arm Bands Present: Yes (05/07/2016 01:02:Olena Diallo RN) Isolation: [place] (05/07/2016 01:02:Olena Diallo RN) FALL SCREEN Fall Risk History of Falling: (0) No (05/07/2016 01:02:Olena Diallo RN) Fall Risk Secondary Diagnosis: (0) No (05/07/2016 01:02:Olena Diallo RN) Fall Risk Ambulatory Aid: (0) None/Bedrest/Wheelchair/Nurse Assist (05/07/2016 01:02:Olena Diallo RN) Fall Risk IV Therapy: (0) No (05/07/2016 01:02:Olena Diallo RN) Fall Risk Gait: (0) Normal/Bedrest/Immobile (05/07/2016 01:02:Olena Diallo RN) Fall Risk Mental Status: (0) Oriented to Own Ability (05/07/2016 01:02:Olena Diallo RN) Fall Risk Score: 0 (05/07/2016 01:02:QS system process) Fall Risk Score Definition: No Risk: No action required (05/07/2016 01:02:QS system process) RECENT TRAVEL/INFECTIOUS DISEASE Recent Exp Communicable Disease: No (05/07/2016 01:02:Olena Diallo RN) Cough or Fever: No (05/07/2016 01:02:Olena Diallo RN) Foreign Travel Past 10 Days: No (05/07/2016 01:02:Olena Diallo RN) Open Wounds or Sores: No (05/07/2016 01:02:Olena Diallo RN) Prior Antibiotic Resistance Tx: No (05/07/2016 01:02:Olena Diallo RN) Cultures Obtained: Not Applicable (05/07/2016 01:02:Olena Diallo RN) Isolation Initiated: No (05/07/2016 01:02:Olena Diallo RN) Pt/Family Education: Not Applicable (05/07/2016 01:02:Olena Diallo RN) BABY A FHR Baseline Rate (bpm) Baby A: 125 (05/07/2016 06:00:Olena Diallo RN) FHR Baseline Rate (bpm) Baby A: 120 (05/07/2016 05:30:Olena Diallo RN) FHR Baseline Rate (bpm) Baby A: 130 (05/07/2016 05:00:Crystal Appleton, RN) FHR Baseline Rate (bpm) Baby A: 130 (05/07/2016 04:30:Crystal Appleton, RN) FHR Baseline Rate (bpm) Baby A: 130 (05/07/2016 04:00:Crystal Appleton, RN) FHR Baseline Rate (bpm) Baby A: 125 (05/07/2016 03:30:Crystal Appleton, RN) FHR Baseline Rate (bpm) Baby A: 125 (05/07/2016 03:00:Crystal Appleton, RN) FHR Baseline Rate (bpm) Baby A: 130 (05/07/2016 02:30:Crystal Appleton, RN) FHR Baseline Rate (bpm) Baby A: 130 (05/07/2016 01:59:Crystal Imani, RN) FHR Baseline Rate (bpm) Baby A: 130 (05/07/2016 01:38:Crystal Imani, RN) FHR Baseline Rate (bpm) Baby A: 130 (05/07/2016 01:18:Crystal Imani, RN) Variability Baby A: Moderate 6-25 bpm (05/07/2016 06:00:Crystal Imani, RN) Variability Baby A: Moderate 6-25 bpm (05/07/2016 05:30:Crystal Appleton, RN) Variability Baby A: Moderate 6-25 bpm (05/07/2016 05:00:Crystal Imani, RN) Variability Baby A: Moderate 6-25 bpm (05/07/2016 04:30:Crystal Appleton, RN) Variability Baby A: Moderate 6-25 bpm (05/07/2016 04:00:Crystal Appleton, RN) Variability Baby A: Moderate 6-25 bpm (05/07/2016 03:30:Crystal Appleton, RN) Variability Baby A: Moderate 6-25 bpm (05/07/2016 03:00:Crystal Appleton, RN) Variability Baby A: Moderate 6-25 bpm (05/07/2016 02:30:Crystal Appleton, RN) Variability Baby A: Moderate 6-25 bpm (05/07/2016 01:59:Crystal Imani, RN) Variability Baby A: Moderate 6-25 bpm (05/07/2016 01:38:Crystal Imani, RN) Variability Baby A: Moderate 6-25 bpm (05/07/2016 01:18:Olena Diallo RN) Accelerations Baby A: 15X15 (05/07/2016 06:00:Olena Diallo RN) Accelerations Baby A: 15X15 (05/07/2016 05:30:Olena Diallo RN) Accelerations Baby A: 15X15 (05/07/2016 05:00:Olena Diallo RN) Accelerations Baby A: 15X15 (05/07/2016 04:30:Olnea Diallo RN) Accelerations Baby A: 15X15 (05/07/2016 04:00:Olena Diallo RN) Accelerations Baby A: 15X15 (05/07/2016 03:00:Olena Diallo RN) Accelerations Baby A: 15X15 (05/07/2016 02:30:Olena Diallo RN) Accelerations Baby A: Prolonged (05/07/2016 01:59:Olena Diallo RN) Accelerations Baby A: 15X15 (05/07/2016 01:38:Olena Diallo RN) Accelerations Baby A: 15X15 (05/07/2016 01:18:Olena Diallo RN)
--- NOTE | 2016-05-07 10:46 | Antepartum Discharge Summary ---
Antepartum DC Datetime Report Generated by CPN: 05/07/2016 10:45 DIET/ACTIVITY/RESTRICTIONS Diet: Regular (05/07/2016 06:38:Crystal Irving, RN) Activity: Normal Activity (05/07/2016 06:38:Crystal Imani, RN) TEACHING/INSTRUCTIONS/REFERRALS Instructions Understood: Patient Verbalized Understanding; Support Person Verbalized Understanding (05/07/2016 06:38:Crystal Irving, RN) Referrals: None (05/07/2016 06:38:Crystal Irving, RN) Educational Materials- Other: labor signs, NST (05/07/2016 06:38:Olena Diallo RN) DISCHARGE INFORMATION Discharged AMA: No (05/07/2016 06:38:Olena Diallo RN) Discharge Date/Time: 05/07/2016 06:22 (05/07/2016 06:38:Olena Diallo RN) Discharged To: Home (05/07/2016 06:38:Olena Diallo RN) Discharge Provider Name: [facility] (05/07/2016 06:38:Olena Diallo RN) Discharge Method: Ambulatory (05/07/2016 06:38:Olena Diallo RN) Condition: Stable (05/07/2016 06:38:Olena Diallo RN) FOLLOW UP INFORMATION Follow Up With: [facility] (05/07/2016 06:38:Olena Diallo RN) Follow Up On: As Scheduled (05/07/2016 06:38:Olena Diallo RN)
--- NOTE | 2016-05-07 10:46 | L&D Discharge Summary ---
OB Discharge Summary Datetime Report Generated by CPN: 05/07/2016 10:45 DISCHARGE DIAGNOSIS Diagnosis/Symptoms: False Labor Diagnoses/Symptoms Other: Not in labor Gestation: 32.4 Number of Babies in Womb: 4 Parity: 1 DIET/ACTIVITY/RESTRICTIONS Diet: Regular Activity: Normal Activity TEACHING/INSTRUCTIONS/REFERRALS Instructions Understood: Patient Verbalized Understanding; Support Person Verbalized Understanding Referrals: None Educational Materials- Other: labor signs, NST DISCHARGE INFORMATION Discharged AMA: No Discharge Date/Time: 05/07/2016 06:22 Discharged To: Home Discharge Provider Name: [place] Discharge Method: Ambulatory Condition: Stable FOLLOW UP INFORMATION Follow Up With: [facility] Follow Up On: As Scheduled
--- NOTE | 2016-05-07 10:46 | L&D Current Admission ---
Current Admit Datetime Report Generated by CPN: 05/07/2016 10:45 ADMISSION INFORMATION Chief Complaint: Contractions (05/07/2016 01:02:Crystal Imani, MCKAYLA)
--- NOTE | 2016-05-07 10:46 | L&D Flow Sheet ---
LD Flowsheet Datetime Report Generated by CPN: 05/07/2016 10:45 Datetime: 05/07/2016 06:22 Vital Signs Stage of : OB Triage (Crystal [place], RN) Provider Reviewed Strip: Yes (Crystal Priscilla, RN) Strip Reviewed by: C. priscilla, RN (Crystal [place], RN) Communication Communication: Provider Orders Received; Provider at Bedside (Crystal Priscilla, RN) Provider Notified (Name): Neilsen (Crystal [place], RN) Notification Reason: Status Update; Labor Status; Uterine Activity (Crystal [place], RN) Communication Comments: Received orders to DC pt. monitors turned off. (Crystal Priscilla, RN) Datetime: 05/07/2016 06:20 Provider Reviewed Strip: Yes (Crystal Priscilla, RN) Datetime: 05/07/2016 06:12 Vital Signs Stage of : OB Triage (Crystal Priscilla, RN) Communication Communication: Call/Page Placed to Provider (Crystal [place], RN) Provider Notified (Name): Neilsen (Crystal [place], RN) Notification Reason: Status Update (Crystal [place], RN) Datetime: 05/07/2016 06:00 Uterine Activity Monitor Mode: External; Palpation (Crystal Priscilla, RN) Frequency (min): irritability (Crystal [place], RN) Resting Tone (Palpate): Relaxed (Crystal Priscilla, RN) Assessment A Monitor Mode: External US (Crystal [place], RN) FHR Baseline Rate : 125 (Crystal Priscilla, RN) Variability: Moderate 6-25 bpm (Crystal [place], RN) Accelerations: 15X15 (Crystal [place], RN) Patient Position/Activity: Right Lateral (Crystal [place], RN) Datetime: 05/07/2016 05:30 Uterine Activity Monitor Mode: External; Palpation (Crystal [place], RN) Frequency (min): 0 (Crystal Priscilla, RN) Resting Tone (Palpate): Relaxed (Crystal Priscilla, RN) Assessment A Monitor Mode: External US (Crystal [place], RN) FHR Baseline Rate : 120 (Crystal [place], RN) Variability: Moderate 6-25 bpm (Crystal Priscilla, RN) Accelerations: 15X15 (Crystal Priscilla, RN) Patient Position/Activity: Right Lateral (Crystal [place], RN) Datetime: 05/07/2016 05:00 Uterine Activity Monitor Mode: External; Palpation (Crystal Priscilla, RN) Frequency (min): 0 (Crystal [place], RN) Resting Tone (Palpate): Relaxed (Crystal Priscilla, RN) Assessment A Monitor Mode: External US (Crystal Priscilla, RN) FHR Baseline Rate : 130 (Crystal Priscilla, RN) Variability: Moderate 6-25 bpm (Crystal Priscilla, RN) Accelerations: 15X15 (Crystal [place], RN) Patient Position/Activity: Right Lateral (Crystal [place], RN) Datetime: 05/07/2016 04:30 Uterine Activity Monitor Mode: External; Palpation (Crystal [place], RN) Frequency (min): 0 (Crystal [place], RN) Resting Tone (Palpate): Relaxed (Crystal [place], RN) Assessment A Monitor Mode: External US (Crystal [place], RN) FHR Baseline Rate : 130 (Crystal [place], RN) Variability: Moderate 6-25 bpm (Crystal Priscilla, RN) Accelerations: 15X15 (Crystal [place], RN) Patient Position/Activity: Left Extreme (Crystal [place], RN) Datetime: 05/07/2016 04:00 Uterine Activity Monitor Mode: External; Palpation (Crystal [place], RN) Frequency (min): x1 (Crystal [place], RN) Quality: Mild (Crystal [place], RN) Duration (sec): 70 (Crystal Priscilla, RN) Duration Criteria: Less than Two 120 Second Contractions (Crystal [place], RN) Resting Tone (Palpate): Relaxed (Crystal [place], RN) Assessment A Monitor Mode: External US (Crystal Priscilla, RN) FHR Baseline Rate : 130 (Crystal [place], RN) Variability: Moderate 6-25 bpm (Crystal [place], RN) Accelerations: 15X15 (Crystal Priscilla, RN) Datetime: 05/07/2016 03:30 Uterine Activity Monitor Mode: External (Crystal [place], RN) Frequency (min): x1 (Crystal Priscilla, RN) Quality: Mild (Crystal Priscilla, RN) Duration (sec): 60 (Crystal Priscilla, RN) Resting Tone (Palpate): Relaxed (Crystal [place], RN) Assessment A Monitor Mode: External US (Crystal [place], RN) FHR Baseline Rate : 125 (Crystal Priscilla, RN) Variability: Moderate 6-25 bpm (Crystal Priscilla, RN) Datetime: 05/07/2016 03:12 I/O Interventions: Up to BR (Crystal Priscilla, RN) Datetime: 05/07/2016 03:00 Uterine Activity Monitor Mode: External; Palpation (Crystal [place], RN) Frequency (min): x1 (Crystal Priscilla, RN) Quality: Mild (Crystal Priscilla, RN) Duration (sec): 70 (Crystal Priscilla, RN) Duration Criteria: Less than Two 120 Second Contractions (Crystal [place], RN) Resting Tone (Palpate): Relaxed (Crystal [place], RN) Assessment A Monitor Mode: External US (Crystal [place], RN) FHR Baseline Rate : 125 (Crystal Priscilla, RN) Variability: Moderate 6-25 bpm (Crystal [place], RN) Accelerations: 15X15 (Crystal Priscilla, RN) Patient Position/Activity: Right Lateral (Crystal Priscilla, RN) Datetime: 05/07/2016 02:30 Uterine Activity Monitor Mode: External; Palpation (Crystal Priscilla, RN) Frequency (min): x2 (Crystal Priscilla, RN) Quality: Mild (Crystal Priscilla, RN) Duration (sec): 60-70 (Crystal Priscilla, RN) Duration Criteria: Less than Two 120 Second Contractions (Crystal Priscilla, RN) Resting Tone (Palpate): Relaxed (Crystal [place], RN) Assessment A Monitor Mode: External US (Crystal Priscilla, RN) FHR Baseline Rate : 130 (Crystal [place], RN) Variability: Moderate 6-25 bpm (Crystal Priscilla, RN) Accelerations: 15X15 (Crystal Priscilla, RN) Patient Position/Activity: Right Lateral (Crystal [place], RN) Datetime: 05/07/2016 02:17 Vital Signs Stage of : OB Triage (Crystal [place], RN) Provider Reviewed Strip: Yes (Crystal Priscilla, RN) Strip Reviewed by: C. Tomerrgass, RN (Crystal Priscilla, RN) Communication Communication: Provider at Bedside (Crystal Priscilla, RN) Provider Notified (Name): Dr. Lissetteen (Crystal Priscilla, RN) Notification Reason: Status Update; Status (Crystal [place], RN) Datetime: 05/07/2016 01:59 Uterine Activity Monitor Mode: External; Palpation (Crystal Priscilla, RN) Frequency (min): 6 (Crystal [place], RN) Quality: Mild (Crystal Priscilla, RN) Duration (sec): 70-90 (Crystal Priscilla, RN) Duration Criteria: Less than Two 120 Second Contractions (Crystal [place], RN) Resting Tone (Palpate): Relaxed (Crystal [place], RN) Assessment A Monitor Mode: External US (Crystal [place], RN) FHR Baseline Rate : 130 (Crystal [place], RN) Variability: Moderate 6-25 bpm (Crystal [place], RN) Accelerations: Prolonged (Crystal [place], RN) Patient Position/Activity: Right Lateral (Crystal Priscilla, RN) Datetime: 05/07/2016 01:44 Patient Care IV/Blood Work: New IV Bag Hung (Crystal [place], RN) Datetime: 05/07/2016 01:38 Uterine Activity Monitor Mode: External; Palpation (Crystal Priscilla, RN) Frequency (min): 1.5-3 (Crystal [place], RN) Quality: Mild/Moderate (Crystal Priscilla, RN) Duration (sec): 40-90 (Crystal [place], RN) Duration Criteria: Less than Two 120 Second Contractions (Crystal Priscilla, RN) Resting Tone (Palpate): Relaxed (Crystal Priscilla, RN) Assessment A Monitor Mode: External US (Crystal Priscilla, RN) FHR Baseline Rate : 130 (Crystal [place], RN) Variability: Moderate 6-25 bpm (Crystal [place], RN) Accelerations: 15X15 (Crystal [place], RN) Patient Position/Activity: Right Tilt; Semi-Fowlers (Crystal Priscilla, RN) Datetime: 05/07/2016 01:35 Medications Medication Comments: 5 mg compazine IV (Crystal [place], RN) Provider Reviewed Strip: Yes (Crystal Priscilla, RN) Communication Communication: Provider at Bedside (Crystal Priscilla, RN) Datetime: 05/07/2016 01:18 Uterine Activity Monitor Mode: External; Palpation (Crystal Priscilla, RN) Frequency (min): 3-4 (Crystal Priscilla, RN) Quality: Mild (Crystal [place], RN) Duration (sec): 50-70 (Crystal Priscilla, RN) Duration Criteria: Less than Two 120 Second Contractions (Crystal Priscilla, RN) Resting Tone (Palpate): Relaxed (Crystal Priscilla, RN) Assessment A Monitor Mode: External US (Crystal [place], RN) FHR Baseline Rate : 130 (Crystal [place], RN) Variability: Moderate 6-25 bpm (Crystal [place], RN) Accelerations: 15X15 (Crystal [place], RN) Patient Position/Activity: Right Tilt; Semi-Fowlers (Crystal [place], RN) Datetime: 05/07/2016 01:17 Vital Signs Stage of : OB Triage (Olena Diallo, MCKAYLA) Provider Reviewed Strip: Yes (Crystal [place], RN) Communication Communication: Provider at Bedside; Provider Orders Received (Olena Diallo RN) Provider Notified (Name): Dr. Torres (Olena Diallo RN) Communication Comments: Give 5 mg compazine IV now _ a 1000ml bolus of fluid. After bolus start LR @125/hr. (Olena Diallo, RN) Datetime: 05/07/2016 01:15 NBP Sys/Tuyet/Mean (mmHg): 109 (QS system process) : 70 (QS system process) : 85 (QS system process) Pulse: 103 (QS system process) LaborFlag: OB Triage (QS system process) Datetime: 05/07/2016 01:10 Patient Care IV/Blood Work: IV Started; IV Bolus Started (Shanti Nohemy, RN) Patient Care Comments: IV started with 18 g in R forearm with first attempt. (Shanti Nohemy, RN) Datetime: 05/07/2016 01:06 Vital Signs Stage of : OB Triage (Crystal [place], RN) Vaginal Exam Dilatation (cm): 1.0 (Crystal Priscilla, RN) Exam by: Dr. Neilsen (Crystal [place], RN) Vaginal Bleeding: None (Crystal Priscilla, RN) Cervix, Consistency: Soft (Crystal Priscilla, RN) Vaginal Exam Comments: 1, thick, high (Crystal [place], RN) Datetime: 05/07/2016 01:02 Assessment A Monitor Mode: External US (Crystal Priscilla, RN) Pain Pain Scale: 1 (Crystal [place], RN) Pain Presence: Intermittent (Crystal [place], RN) Pain Type: Contraction (Crystal Priscilla, RN) Pain Location: Back (Crystal [place], RN) Pain Goal: 1 (Crystal Priscilla, RN) Pain Relief Measures: Comfort Measures (Crystal Priscilla, RN) Pain Coping: Talking Through Contractions (Crystal Priscilla, RN) Membrane Status: Intact (Crystal [place], RN) Vaginal Bleeding: None (Crystal [place], RN) Zuniga's Score Consistency: Soft (Crystal [place], RN) Maternal Assessment Level of Consciousness: Fully Conscious (Crystal Priscilla, RN) DTR's/Clonus: DTRs 2+; No Clonus (Crystal [place], RN) Headache: Generalized (Crystal [place], RN) Breath Sounds, Left: Clear and Equal (Crystal [place], RN) Breath Sounds, Right: Clear and Equal (Crystal Priscilla, RN) Nausea/Vomiting: Denies (Crystal Priscilla, RN) RUQ Epigastric Pain: Denies (Crystal Priscilla, RN) Teaching Instructional Method: Verbal; Patient Instructed; Family/Support Person Instructed; Verbalized Understanding (Olena Diallo RN) Plan of Care: Plan of Care Discussed (Olena Diallo RN) Unit Routine: [place] to Room; Call [place]; Bed; Visiting Policy; Waiting Areas; Security; Phone/Cell Phone Use (Olena Diallo RN) LaborFlag: Antepartum (QS system process)
--- NOTE | 2016-05-07 10:46 | L&D General Admission ---
General Admit Datetime Report Generated by CPN: 05/07/2016 10:45 CARE Height (in): 61 (05/07/2016 01:30:QS system process) ALLERGIES Medication Allergies: No Known Allergies (05/07/2016) (05/07/2016 01:30:QS system process)
== END 2016-05-07 06:40 | disposition home or self-care (01) ==
LOC: LC 00:50
PROVIDERS: ATTEND Specialist
PROC: 4A1HXCZ Monitoring of Products of Conception, Cardiac Rate, External Approach (ICD-10-PCS; principal; 2016-05-07)
DX: O47.03 False labor before 37 completed weeks of gestation, third trimester (principal); Z3A.32 32 weeks gestation of pregnancy
CPT/HCPCS: 59025; 81001; 80307; J0780

== ENCOUNTER 2016-06-03 11:40 | Inpatient (IN) | payer OTHER ==
[~2016-06-03 11:40] MED LIST: IBUPROFEN 800 MG TABLET PO PRN
--- NOTE | 2016-06-03 11:57 | Non Stress Test Report ---
Non Stress Test Datetime Report Generated by CPN: 06/03/2016 11:56 DEMOGRAPHIC Test Number: 1 EGA NST: 32.5 INDICATION Indication for Study: Ordered by Provider Indication for Study (NST) Other: LC VITAL SIGNS Temperature - NST: 98.0 MONITORING Monitor Explained: Monitor Explained; Test Explained; Patient Verbalized Understanding Time on Monitor: 05/07/2016 01:04 Time off Monitor: 05/07/2016 06:24 NST Duration: 320 NST INTERVENTIONS NST Interventions: IV Fluids; Reposition Patient NST Interventions Other: Compazine for rest Physician Notified NST: Neilsen BABY A: [id number] BABY A Movement : Present Contraction Frequency : 0 FHR Baseline : 125 Accelerations : 15X15 Decelerations : None Variability : Moderate 6-25bpm NST Review: Meets Criteria for Reactive NST NST Review and Verified By : Lakeisha Slater, RNC NST Results: Reactive NST REPORT Report Trigger: Send Report
[2016-06-03] MEDS ORDERED: RINGERS SOLUTION,LACTATED 1,000 ML IV PRN (12:38)
[2016-06-03] MEDS ORDERED: RINGERS SOLUTION,LACTATED 1,000 ML IV ONE (12:38)
[2016-06-03 12:51] LABS: APPEARANCE,URINE SLIGHTLY-CLOUDY; BILIRUBIN,URINE NEGATIVE (NEGATIVE); GLUCOSE, URINE NEGATIVE (NEGATIVE); KETONES,URINE NEGATIVE (NEGATIVE); LEUKOCYTE ESTERASE,URINE TRACE (NEGATIVE); NITRITE,URINE NEGATIVE (NEGATIVE); PROTEIN,URINE 30 mg/dL (NEGATIVE); URINE SPECIFIC GRAVITY 1.016; UROBILINOGEN,URINE NEGATIVE mg/dL (<2.0)
[2016-06-03 13:06] LABS: URINE BARBITURATES SCREEN NEGATIVE; URINE METHADONE SCREEN NEGATIVE; URINE OPIATES LOW NEGATIVE; URINE PHENCYCLIDINE SCREEN NEGATIVE
[2016-06-03] MEDS ORDERED: CITRIC ACID/SODIUM CITRATE ORAL SOLN 15 ML UDCUP ONE (13:11)
[2016-06-03 13:24] LABS: ABSOLUTE LYMPHOCYTES (AUTO) 1.7 10^3/uL (0.5-4.7); ABSOLUTE MONOCYTES (AUTO) 0.7 10^3/uL (0.1-1.4); ABSOLUTE NEUT (AUTO) 5.5 10^3/uL (1.7-8.2); BASOPHILS % (AUTO) 0.4 % (0-2); EOSINOPHILS % (AUTO) 0.3 % (0-6); HEMATOCRIT 35.3 % (36.0-47.0); HGB HCT DIFFERENCE 0.7; LYMPHOCYTES % (AUTO) 21.1 % (13-45); MEAN CORPUSCULAR HEMOGLOBIN 30.6 pg (27.0-33.4); MEAN CORPUSCULAR HGB CONC 33.9 g/dL (32.0-36.0); MEAN CORPUSCULAR VOLUME 90 fl (80-97); MONOCYTES % (AUTO) 9.4 % (3-13); RED BLOOD COUNT 3.91 10^6/uL (3.72-5.28); RED CELL DISTRIBUTION WIDTH 14.1 % (11.5-14.0); SEGMENTED NEUTROPHILS % (AUTO) 68.8 % (42-78)
[2016-06-03] MEDS ORDERED: LIDOCAINE 2% JELLY 5 ML TUBE ONE (13:28)
[2016-06-03] MEDS ORDERED: ACETAMINOPHEN 100 ML IV ONE (13:56)
[2016-06-03] MEDS ORDERED: OXYTOCIN/NORMAL SALINE 20 UNIT/1,000 ML RTUINJ ONE (13:56)
[2016-06-03] MEDS ORDERED: MIDAZOLAM 2 MG/2 ML INJ ONE (13:56)
[2016-06-03] MEDS ORDERED: FENTANYL CITRATE INJ/PF 100 MCG/2 ML AMPUL ONE (13:56)
[2016-06-03] MEDS ORDERED: OXYTOCIN 10 UNIT/ML VIAL ONE (13:56)
[2016-06-03] MEDS ORDERED: ONDANSETRON HCL INJ/PF 4 MG/2 ML SDV ONE (13:57)
[2016-06-03] MEDS ORDERED: CEFAZOLIN 1 GM/D5W RTU 1 GM/50 ML RTUPB IV ONE (13:59)
[2016-06-03] MEDS ORDERED: BUPIVACAINE INJ/PF LIPOSOME/PF 266 MG/20 ML SDV ONE (14:25)
[2016-06-03] MEDS ORDERED: TRIAMCINOLONE ACETONIDE INJ 40 MG/1 ML VIAL ONE (14:27)
[2016-06-03] MEDS ORDERED: DIPHENHYDRAMINE HCL 50 MG/ML VIAL IV PRN (14:38)
[2016-06-03] MEDS ORDERED: PROMETHAZINE HCL INJ 25 MG/1 ML VIAL IV PRN (14:38)
[2016-06-03] MEDS ORDERED: FENTANYL CITRATE INJ/PF 100 MCG/2 ML AMPUL IV PRN ×2 (14:38)
[2016-06-03] MEDS ORDERED: MEPERIDINE HCL/PF INJ 25 MG/1 ML DISP.SYRIN IV PRN (14:38)
[2016-06-03] MEDS ORDERED: MORPHINE SULFATE 10 MG/ML INJ IV PRN ×2 (14:38→19:19)
[2016-06-03] MEDS ORDERED: KETOROLAC TROMETHAMINE INJ/PF 30 MG/1 ML SDV ONE (15:38)
[2016-06-03] MEDS ORDERED: MORPHINE SULFATE 10 MG/ML INJ ONE (17:58)
[2016-06-03] MEDS ORDERED: MEASLES,MUMPS&RUBELLA VACC/PF 0.5 ML VIAL SUBCUT PRN (18:14)
[2016-06-03] MEDS ORDERED: HYDROMORPHONE HCL INJ/PF 2 MG/ML AMPULE IV PRN (18:14)
[2016-06-03] MEDS ORDERED: OXYTOCIN/NORMAL SALINE 20 UNIT/1,000 ML RTUINJ INJ PRN (18:14)
[2016-06-03] MEDS ORDERED: OXYCODONE-ACETAMINOPHEN 5-325 MG TABLET PO PRN ×2 (18:14)
[2016-06-03] MEDS ORDERED: DIPH/PERTUSS(ACELL)/TETANUS VAC/PF 0.5 ML SYR (>=10YO) IM PRN (18:14)
[2016-06-03] MEDS ORDERED: PROMETHAZINE HCL INJ 25 MG/1 ML VIAL IM PRN (18:14)
[2016-06-03] MEDS ORDERED: MORPHINE SULFATE 10 MG/ML INJ IM PRN ×2 (18:14)
[2016-06-03] MEDS ORDERED: ACETAMINOPHEN 325 MG TABLET PO PRN (18:14)
[2016-06-03] MEDS: CEFAZOLIN 1 GM/D5W RTU 1 GM/50 ML RTUPB IV SCH ×2 (18:50→23:57)
[2016-06-03] MEDS ORDERED: OXYCODONE HCL IR 5 MG TABLET ONE (19:03)
[2016-06-03] MEDS ORDERED: OXYCODONE HCL IR 5 MG TABLET PO PRN (19:13)
[2016-06-03] MEDS: SIMETHICONE 80 MG TAB.CHEW PO PRN (21:30)
[2016-06-03] MEDS ORDERED: ACETAMINOPHEN INJ/PF 1000 MG/100 ML SDV IV SCH (22:00)
[2016-06-03] MEDS: OXYCODONE HCL IR 5 MG TABLET PO PRN (23:54)
[2016-06-04] MEDS: IBUPROFEN 800 MG TABLET PO SCH ×5 (00:01→23:06)
[2016-06-04] MEDS: KETOROLAC TROMETHAMINE INJ/PF 30 MG/1 ML SDV IV SCH ×2 (01:13→09:19)
[2016-06-04] MEDS: CEFAZOLIN 1 GM/D5W RTU 1 GM/50 ML RTUPB IV SCH ×2 (05:38→11:35)
[2016-06-04] MEDS: OXYCODONE HCL IR 5 MG TABLET PO PRN ×4 (05:48→20:09)
[2016-06-04 06:47] LABS: HEMATOCRIT 27.7 % (36.0-47.0); HGB HCT DIFFERENCE 0.2; MEAN CORPUSCULAR HEMOGLOBIN 30.4 pg (27.0-33.4); MEAN CORPUSCULAR HGB CONC 33.6 g/dL (32.0-36.0); MEAN CORPUSCULAR VOLUME 91 fl (80-97); RED BLOOD COUNT 3.06 10^6/uL (3.72-5.28); RED CELL DISTRIBUTION WIDTH 13.6 % (11.5-14.0)
[2016-06-04 06:48] LABS: HEMOGLOBIN 9.3 g/dL (12.0-15.5)
[2016-06-04] MEDS: DOCUSATE SODIUM 100 MG CAPSULE PO SCH ×2 (09:18→17:16)
[2016-06-04] MEDS: PRENATAL VITAMIN W-O CA NO5/FE FUMARATE/FA CAPSULE PO SCH (09:18)
[2016-06-04] MEDS: SIMETHICONE 80 MG TAB.CHEW PO PRN ×2 (09:19→15:24)
--- NOTE | 2016-06-04 10:56 | PDOC PROGRESS REPORT ---
Subjective-OB Subjective: Post Delivery Day: 26 year old. Denies any needs at this time. Pt doing well, having gas pains, minimal bleeding, voiding well, ambulatory and on regular diet. Physical Exam (OB) Vital Signs: Temp Pulse Resp BP Pulse Ox 97.5 F 65 18 107/76 98 06/04/16 07:48 06/04/16 07:48 06/04/16 07:48 06/04/16 07:48 06/04/16 04:00 Intake & Output 06/03/16 06/04/16 06/05/16 06:59 06:59 06:59 Intake Total 2275 Output Total 2650 Balance -375 Weight 61.25 kg - Dressing Removed: No - op site Incision: Well Approximated Closure Type: opsite - Lochia Lochia Amount: Scant < 10 ml Lochia Color: Rubra/Red - Abdomen Description: Soft Hernia Present: No Fundal Description: Firm, Midline Fundal Height: u/u - u/2 Objective-Diagnostic Laboratory: 06/04/16 06:21 06/03/16 06/03/16 06/03/16 11:57 13:09 13:09 WBC 8.0 RBC 3.91 Hgb 12.0 Hct 35.3 L MCV 90 MCH 30.6 MCHC 33.9 RDW 14.1 H Plt Count 244 Seg Neutrophils % 68.8 Lymphocytes % 21.1 Monocytes % 9.4 Eosinophils % 0.3 Basophils % 0.4 Absolute Neutrophils 5.5 Absolute Lymphocytes 1.7 Absolute Monocytes 0.7 Absolute Eosinophils 0.0 Absolute Basophils 0.0 Urine Color YELLOW Urine Appearance SLIGHTLY-CLOUDY Urine pH 6.0 Ur Specific [place] 1.016 Urine Protein 30 H Urine Glucose (UA) NEGATIVE Urine Ketones NEGATIVE Urine Blood NEGATIVE Urine Nitrite NEGATIVE Ur Leukocyte Esterase TRACE H Blood Type A POSITIVE Antibody Screen NEGATIVE 06/04/16 06:21 WBC 9.0 RBC 3.06 L Hgb 9.3 L D Hct 27.7 L MCV 91 MCH 30.4 MCHC 33.6 RDW 13.6 Plt Count 195 Seg Neutrophils % Lymphocytes % Monocytes % Eosinophils % Basophils % Absolute Neutrophils Absolute Lymphocytes Absolute Monocytes Absolute Eosinophils Absolute Basophils Urine Color Urine Appearance Urine pH Ur Specific [place] Urine Protein Urine Glucose (UA) Urine Ketones Urine Blood Urine Nitrite Ur Leukocyte Esterase Blood Type Antibody Screen Assessment and Plan(PN) - Assessment and Plan (1) Status post repeat low transverse section Is this a current diagnosis for this admission?: Yes (2) contractions Is this a current diagnosis for this admission?: Yes - Time Spent with Patient Time with patient: Less than 15 minutes Medications reviewed and adjusted accordingly: Yes - Disposition Anticipated Discharge: Home Within: within 48 hours
[2016-06-04 12:16] LABS: HEMATOCRIT 29.2 % (36.0-47.0); HGB HCT DIFFERENCE 0.8; MEAN CORPUSCULAR HEMOGLOBIN 31.1 pg (27.0-33.4); MEAN CORPUSCULAR HGB CONC 34.1 g/dL (32.0-36.0); MEAN CORPUSCULAR VOLUME 91 fl (80-97); RED CELL DISTRIBUTION WIDTH 13.9 % (11.5-14.0); WHITE BLOOD COUNT 9.4 10^3/uL (4.0-10.5)
--- NOTE | 2016-06-04 13:28 | OPERATIVE REPORT E ---
Operative Report NAME: RODRIGO MAHAN : 1990 AGE: 26Y DATE OF SURGERY: 06/03/2016 ROOM: 211 PREOPERATIVE DIAGNOSES: 1. IUP at 36 weeks and 4 days. 2. Previous x1. 3. Premature labor. POSTOPERATIVE DIAGNOSES: 1. IUP at 36 weeks and 4 days. 2. Previous x1. 3. Premature labor. SURGEON: BARAK ARREOLA M.D. ANESTHESIA: Dr. Lundberg with a spinal. FINDINGS: A female in cephalic presentation with Apgars of 8 and 9, weight 5 pounds 6.5 ounces. A tight true knot in the umbilical cord approximately 3 cm from the umbilicus and significant amniotic fluid consistent with her history of polyhydramnios during the . COMPLICATIONS: None. ESTIMATED BLOOD LOSS: 600 mL. SPECIMENS REMOVED: None. PROCEDURE: Low transverse hysterotomy section with a scar revision of her keloid scar. PROCEDURE IN DETAIL: The patient was taken to the operating room and prepared and draped in a normal sterile fashion in a supine position with a leftward tilt. A transverse skin incision was made above the patient's keloid. The keloid was excised carefully and undermined with the scalpel until completely removed. The rest of the incision was then carried through to the underlying layer of fascia with the same scalpel. The fascia was excised in the midline and extended laterally with Hill's. The fascia was then dissected from the rectus muscle sharply with Hill's. The rectus muscle was divided and the peritoneal cavity was entered bluntly with surgeon finger fracture with good visualization of the uterus and the bladder. The bladder blade was inserted and the hysterotomy was nicked in the center with a scalpel and extended laterally with surgeon finger fracture. The was then delivered atraumatically. The nose and mouth were suctioned with a suction bulb and the cord was clamped and cut and the was handed off to awaiting pediatricians. The above findings were noted in the umbilical cord immediately upon delivery of the infant. The cord blood was collected and the placenta was removed manually. The uterus was then exteriorized and cleared of clots and debris. The hysterotomy was closed with 0 Monocryl in a running, locked fashion. A second layer of the same suture was used to imbricate to ensure hemostasis. The uterus was then returned to the abdomen and the peritoneal cavity was cleared of clots and debris. The rectus muscle and peritoneum were reapproximated with a mattress suture of 2-0 chromic. The fascia was closed with 0 Vicryl. The subcutaneous layer was closed with plain catgut and another layer was closed with interrupted sutures of 3-0 chromic. The skin was then closed with 4-0 Vicryl. The incision was then injected subcutaneously with Exparel as well as Kenalog to try to prevent future keloid reformation. The patient tolerated the procedure well. Sponge, lap, and needle counts were correct x2, and the patient was taken to recovery in stable condition. DICTATING PHYSICIAN: BARAK ARREOLA M.D. [id number] PHY#: [id number] ID: [id number] JOB#: [id number] ACCT: [id number] cc:BARAK ARREOLA M.D. >
[2016-06-04] MEDS: MAGNESIUM HYDROXIDE SUSP 30 ML UDCUP PO PRN (20:04)
[2016-06-05] MEDS: MAGNESIUM HYDROXIDE SUSP 30 ML UDCUP PO PRN (01:52)
[2016-06-05] MEDS: OXYCODONE HCL IR 5 MG TABLET PO PRN (01:52)
[2016-06-05] MEDS: SIMETHICONE 80 MG TAB.CHEW PO PRN (01:52)
[2016-06-05] MEDS: IBUPROFEN 800 MG TABLET PO SCH ×2 (05:38→11:16)
[2016-06-05 08:47] VITALS: BP 108/64
--- NOTE | 2016-06-05 09:38 | PDOC DISCHARGE SUMMARY ---
Final Diagnosis Discharge Date: 06/05/16 - Final Diagnosis (1) Status post repeat low transverse section Is this a current diagnosis for this admission?: Yes (2) Anemia Is this a current diagnosis for this admission?: Yes (3) Delivery by section of full-term Is this a current diagnosis for this admission?: Yes Discharge Data - Discharge Medication Home Medications: Vit#96/Ferrous Fum/FA [ Tablet] 1 tab PO DAILY 08/03/14 Ferrous Sulfate [Iron] 325 mg PO DAILY 05/07/16 Docusate Sodium [Colace 100 mg Capsule] 100 mg PO BID #60 capsule 06/05/16 Ibuprofen [Motrin 800 mg Tablet] 800 mg PO Q6 #60 tablet 06/05/16 Oxycodone HCl [Oxy-Ir 5 mg Tablet] 5 mg PO Q4HP PRN #30 tablet 06/05/16 Gestational Age: 36.4 Reason(s) for Admission: Ceasarean Section-Repeat, Labor Procedures: NST Intrapartum Procedure(s): : Low Cervical, Vertical - [place] Data Baby 1 Female at 1 minute: 8 at 5 minutes: 9 Weight: 2.466 kg Home with Mother: Yes Complications: No - Diagnosis Test Laboratory: Temp Pulse Resp BP Pulse Ox 97.9 F 66 14 108/64 100 06/05/16 08:00 06/05/16 08:00 06/05/16 08:00 06/05/16 08:00 06/05/16 08:00 06/03/16 06/03/16 06/04/16 11:57 13:09 06:21 RBC 3.91 3.06 L Hgb 12.0 9.3 L D Hct 35.3 L 27.7 L Urine Opiates Screen NEGATIVE 06/04/16 12:04 RBC 3.20 L Hgb 10.0 L Hct 29.2 L Urine Opiates Screen - Discharge information/Instructions Discharge Activity: Activity As Tolerated, No Driving, No Lifting Over 10 Pounds , No Lifting/Push/Pulling, Pelvic Rest, No tub bath Discharge Diet: Regular Disposition: HOME, SELF-CARE Follow up with: [facility] in: 1, Weeks
[2016-06-05] MEDS: PRENATAL VITAMIN W-O CA NO5/FE FUMARATE/FA CAPSULE PO SCH (10:03)
[2016-06-05] MEDS: DOCUSATE SODIUM 100 MG CAPSULE PO SCH (10:03)
== END 2016-06-05 11:29 | disposition home or self-care (01) | DRG 765 ==
LOC: LR 11:40 → 2N 17:30
PROVIDERS: ADMIT Obstetrics & Gynecology; ATTEND Obstetrics & Gynecology
PROC: 10D00Z1 Extraction of Products of Conception, Low, Open Approach (ICD-10-PCS; principal; 2016-06-04)
PROC: 0HB7XZZ Excision of Abdomen Skin, External Approach (ICD-10-PCS; 2016-06-04)
DX: O60.14X0 Preterm labor third trimester with preterm delivery third trimester, not applicable or unspecified (principal); O40.3XX0 Polyhydramnios, third trimester, not applicable or unspecified; O69.2XX0 Labor and delivery complicated by other cord entanglement, with compression, not applicable or unspecified; O34.211 Maternal care for low transverse scar from previous cesarean delivery; N85.8 Other specified noninflammatory disorders of uterus; O99.02 Anemia complicating childbirth; D64.9 Anemia, unspecified; O99.284 Endocrine, nutritional and metabolic diseases complicating childbirth; E05.80 Other thyrotoxicosis without thyrotoxic crisis or storm; Z3A.36 36 weeks gestation of pregnancy; Z37.0 Single live birth
CPT/HCPCS: 1961; 36415; 80307; 81005; 85025; 85027; 86592; 86850; 86900; 86901; 94799; C1765; C9290; J0131; J0690; J1885; J2250; J2270; J2405; J2590; J3010; J3490